=== PATIENT | male | born 1965 | race Caucasian/White ===

== ENCOUNTER 2019-11-18 17:20 | Emergency (ER) | payer OTHER, SELFPAY ==
[2019-11-18 17:22] VITALS: BP 119/74; PULSE 81; RESP 15; TEMP 36.9; O2SAT 97; BMI 32.5
--- NOTE | 2019-11-18 17:53 | RAD_ITS ---
STUDY: X-RAY - LEFT HAND REASON FOR EXAM: Male, 54 years old. LACERATION FROM SAW. LACERATION ON 5TH FINGER ON PALM SURFACE TECHNIQUE: 3 view(s) of the hand. COMPARISON: None. FINDINGS: Soft tissue swelling noted at the tip of the fifth finger with chip fractures at the base and lateral side of the distal phalanx of the fifth digit due to laceration. Mild to moderate soft tissue swelling is present throughout the hand and digits. There is also widening of the lateral aspect of the fifth DIP joint likely due to ligamentous injury or rupture. Normal radiocarpal articulation. Normal distal radioulnar joint. Normal visualized carpal bones. Normal carpal articulations Normal carpometacarpal articulation of the thumb. Normal second through fifth carpometacarpal joints. Normal metacarpi. RAD/Hand Min 3 Views IMPRESSION: 1. Chip fracture at the base of the fifth distal phalanx and soft tissue injury 2. Abnormal widening of the lateral aspect of the fifth the IP joint with slight subluxation indicating some degree of ligamentous trauma. Electronically Signed: Jose Petty MD at 18:17 EDT , Service support ,
--- NOTE | 2019-11-18 20:01 | DCINST.ED_ITS ---
ED Disposition - Plan for ED Patient: Instructions: ED Laceration Hand Prescriptions: Cephalexin [Keflex] 500 mg PO Q6 #40 capsule Hydrocodone Bitart/Apap 5-325 [Valmora 5MG-325MG] 1 tablet PO Q6H PRN PRN 3 Days #10 tablet PRN Reason: Pain Referrals: Zuly Mccormick MD [Primary Care Provider] - Mitul Mora MD [STAFF PHYSICIAN] -
[2019-11-18] MEDS: Cephalexin 250 MG Capsule 500 MG PO (20:07)
--- NOTE | 2019-11-18 20:07 | ED.DCSUM_ITS ---
- ER Visit Summary Date of Service: 11/18/19 Chief Complaint: Left small finger laceration History of Present Illness: The patient is a 54 M presenting with laceration to left small finger. Patient was using a table saw at home and cut his left small finger. His tetanus is up-to-date. This was not a work related injury. No other complaints. Physical Examination: Vitals are stable. Patient is afebrile. Alert no acute distress. HEENT exam is unremarkable. Neck is supple. Lungs are clear and equal bilaterally. Heart is regular rate and rhythm. Extremities 2 cm laceration lateral left small finger mid distal phalanx. Tendon function appears intact. Normal cap refill. Skin is warm and dry. No focal neurologic deficit. Remainder of exam is unremarkable. Emergency Department Course and Treatment: Left hand xray shows chip fracture at the base of the fifth distal phalanx and soft tissue injury. Abnormal widening of the lateral aspect of the fifth the IP joint with slight subluxation indicating some degree of ligamentous trauma. Recommend transfer to tertiary care center for hand surgery evaluation. Patient declines. He understands risk of poor healing and permanent disability. He would like wound repair at [facility] and he will follow up as an outpatient. Wound was copiously irrigated. Anesthetized with digital block and local lidocaine. 7, 4-0 simple sutures were placed. Patient tolerated this well. Advised wound care instructions. He is given prescription for Keflex and Atkinson. Discussed with Dr. Mccormick. Patient will follow-up with his primary care physician. He is given referral to Dr. Mora. Advised return to ED for worsening complaints. Disposition: Discharge home Impression: Left small finger laceration, laceration repair This note was generated with [employer] dictation software. It may contain incorrect words, spelling, and punctuation that were not noted in review of the chart prior to signing ED Disposition - Plan for ED Patient: Instructions: ED Laceration Hand Prescriptions: Cephalexin [Keflex] 500 mg PO Q6 #40 cap Prescription Printed Hydrocodone Bitart/Apap 5-325 [Atkinson 5MG-325MG] 1 tab PO Q6H PRN PRN 3 Days #10 tab PRN Reason: Pain Prescription Printed Referrals: Zuly Mccormick MD [Primary Care Provider] - Mitul Mora MD [STAFF PHYSICIAN] -
[2019-11-18 20:28] VITALS: BP 118/81; PULSE 79; RESP 15; O2SAT 98
== END 2019-11-18 20:29 | disposition home or self-care (01) ==
LOC: ED 17:39
PROVIDERS: Emergency Provider Emergency Medicine; PCP Internal Medicine
DX: S61.217A Laceration without foreign body of left little finger without damage to nail, initial encounter (principal); W29.3XXA Contact with powered garden and outdoor hand tools and machinery, initial encounter; Y93.89 Activity, other specified; Y92.008 Other place in unspecified non-institutional (private) residence as the place of occurrence of the external cause; Y99.8 Other external cause status
CPT/HCPCS: 12001; 73130; 99284

== ENCOUNTER 2020-05-27 13:15 | Emergency (ER) | payer SELFPAY ==
[2020-05-27] VITALS (8 sets, daily range): BP systolic 155–176; BP diastolic 104–128; PULSE 97–118; RESP 16–18; TEMP 36.6; O2SAT 96–97; BMI 30.1
--- NOTE | 2020-05-27 13:35 | EKG12_ITS ---
Test Reason : MEDICAL CLEARENCE Blood Pressure : / mmHG Vent. Rate : 110 BPM Atrial Rate : 110 BPM P-R Int : 146 ms QRS Dur : 082 ms QT Int : 332 ms P-R-T Axes : 029 006 006 degrees QTc Int : 449 ms Sinus tachycardia Possible Left atrial enlargement Nonspecific T wave abnormality Abnormal ECG Confirmed by AUGUSTUS BLACKWELL, SAMUEL ([id number]), photo editor ROBERTO PEREZ ([id number]) on 06/02/2020 6:30:11 AM Referred By: MR Confirmed By:SAMUEL COFFMAN MD
--- NOTE | 2020-05-27 13:39 | NURSING ---
NO OLD EKGS
[2020-05-27 13:51] LABS: Absolute Lymphocyte Count 0.89 X10^3/uL (0.83-4.51); Absolute Neutrophil Count 6.1 X10^3/uL (2.0-7.7); Basophil# 0.03 X10^3/uL; Basophil% 0.4 % (0-1); Eosinophil# 0.01 X10^3/uL; Eosinophils% 0.1 % (0-5); Hematocrit 48.4 % (40-54); Lymphocyte # 0.89 X10^3/ul (4.0); Lymphocyte % 11.9 % (19-41); Mean Corp Hgb Conc 35.1 g/dL (32-36); Mean Corpuscular Hgb 30.9 pg (27.0-32.0); Mean Platelet Vol. 10.2 fl (6.2-12.0); Monocyte# 0.39 X10^3/uL; Monocyte% 5.2 % (0-10); NRBC Flagged by Analyzer 0 % (0-5); Neutrophil # 6.12 X10^3/uL (2.7-7.7); Neutrophil % 82.1 % (47-70); Platelet Count 259 K/mm3 (150-450); RBC Distribution Width CV 11.8 % (11.6-14.6); RBC Distribution Width SD 38.1 fl (35.1-43.9); White Blood Count 7.5 K/mm3 (4.4-11.0)
[2020-05-27 14:11] LABS: Anion Gap 7 (5-15); BUN 20 mg/dL (7-18); BUN/Creat Ratio 12.8 RATIO (10-20); Calcium,Total 9.4 mg/dL (8.5-10.1); Chloride 108 mmol/L (98-107); Creatinine, Serum 1.56 mg/dL (0.70-1.30); EST Glomerular Filtration Rate 50 mL/min (>60); Est Glom Filt Rate - Afr Amer 60 mL/min (>60); Estimated Creatinine Clearance 56.54 ml/min; Glucose 132 mg/dL (74-106); Potassium 3.4 mmol/L (3.5-5.1); Sodium Level 140 mmol/L (136-145)
--- NOTE | 2020-05-27 14:25 | CM.ED ---
SOCIAL WORK Patient presents to [facility] ER [place] Slipped by police. Patient is self-pay. Crisis to evaluate for placement once patient is medically cleared. Plan: Pending Crisis evaluation Vijay Andres MSW, STEEL POURER
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
--- NOTE | 2020-05-27 16:13 | NURSING ---
1500 FAXED CHART TO CRISIS. DIDN'T GO THROUGH 1605 FAXED CHART TO CRISIS
--- NOTE | 2020-05-27 16:51 | NURSING ---
ANJANA RIDER, CALLED. PATIENT REFUSED TO TALK TO HER. SHE LEFT A MESSAGE FOR OUR RN IV THERAPY.
--- NOTE | 2020-05-27 17:17 | NURSING ---
PETR HICKMAN, NUMBER [phone]
--- NOTE | 2020-05-27 19:00 | CM.ED ---
SOCIAL WORK Updated by Jessica with Crisis, [facility] does not have a bed until at the earliest Sunday. Jessica working on one time contract with [facility] referral has been sent. Received call from Dr. Mccormick requesting update. Dr. Mccormick updated on the above. Vijay Andres, LOG INSPECTOR, HIGH SCHOOL LIBRARIAN
[2020-05-27 21:08] LABS: Amphetamine Urine VISTA NEGATIVE (<1000 ng/mL); Barbiturate Urine VISTA NEGATIVE (< 200 ng/mL); Benzodiazepine Urine VISTA NEGATIVE (< 200 ng/mL); Cocaine Urine VISTA NEGATIVE (< 300 ng/mL); Ecstacy Urine VISTA NEGATIVE (< 500 ng/mL); Methadone Urine VISTA NEGATIVE (< 300 ng/mL); PCP Urine VISTA NEGATIVE (< 25 ng/mL); THC Urine VISTA NEGATIVE (< 50 ng/mL); Vista UDS pH Range 6
--- NOTE | 2020-05-27 21:13 | CT_ITS ---
STUDY: CT BRAIN WITHOUT CONTRAST REASON FOR EXAM: Male, 54 years old. Psychosis. Paranoid feelings. Elevated blood pressure. RADIATION DOSAGE (If Supplied By Facility): CTDIvol = ( 60.81 ) mGy, DLP = ( 1067.08 ) mGycm TECHNIQUE: Transaxial CT imaging of the brain was performed without administration of intravenous contrast material. Individualized dose optimization techniques were used for this CT. COMPARISON: No relevant priors. FINDINGS: Normal soft tissue structures. Normal calvarium. Normal size ventricles and extra-axial spaces for the patient''s age. Normal white matter tracts of the cerebral hemispheres. Normal basal ganglia and thalami. Normal brainstem. Normal cerebellum. There is no intracranial hemorrhage. There are no findings of an acute ischemic infarction. Mucoperiosteal reaction in the bilateral maxillary sinuses. CT/Brain/Head without Contrast IMPRESSION: 1. Normal unenhanced CT scan of the brain. 2. Sinusitis. Electronically Signed: Td Kennedy DO at 21:41 EST Tel [phone], Service support ,
[2020-05-27] MEDS: cloNIDine HCl 0.2 MG Tablet PO (23:07)
[2020-05-28] VITALS (13 sets, daily range): BP systolic 126–172; BP diastolic 89–110; PULSE 76–85; RESP 16–18; TEMP 36.6; O2SAT 97–99
--- NOTE | 2020-05-28 00:30 | ED.RN ---
yeni hoyt has called back needs patients blood pressure more stable in order to accept ideal blood pressure 160/90. Dr. Blair made aware. will continue to monitor patient at this time.
[2020-05-28] MEDS: amLODIPine 10 MG Tablet PO (03:16)
[2020-05-28] MEDS: diazePAM 5 MG Tablet PO (04:21)
[2020-05-28] MEDS: Ziprasidone HCl 20 MG Capsule PO (06:45)
[2020-05-28] MEDS: cloNIDine HCl 0.2 MG Tablet PO (06:45)
--- NOTE | 2020-05-28 07:12 | ED.RN ---
accepted yeni hoyt when blood pressure decreases
--- NOTE | 2020-05-28 08:21 | ED.RN ---
called yeni hoyt with bp update. intake to talk with and phone us back
--- NOTE | 2020-05-28 10:24 | CM.ED ---
Social Work Medical team inquiring about status of referral. Telephone call to Jessica Anderson. Jessica reports plan to contact [facility] and get back to this social contact worker. Keyona Tavares MSW, KEVIN
--- NOTE | 2020-05-28 10:37 | NURSING ---
FAXED PINK SLIPS TO [facility] [phone]
--- NOTE | 2020-05-28 10:42 | CM.ED ---
Social Work Telephone call from Jessica Anderson. Patient accepted by [facility]. Nurse to call report to [phone]. When nursing calls report nursing to inquiring about accepting doctors name and time to set up transportation. Jessica to set up transportation due to patient being private pay. Medical team updated. Keyona SIMON, KEVIN
--- NOTE | 2020-05-28 11:01 | CM.ED ---
Social Work Per nursing staff, patient accepted Dr. Cleaning. Report has been called and transportation can be set up. Telephone call to Crisis, Jessica. Jessica updated on accepting doctor and that transportation can be set up. Jessica to set up transportation and call this social psychologist back with ETA. Keyona SIMON, CHLOE-S
--- NOTE | 2020-05-28 11:14 | ED.RN ---
report called to kevan at [facility]. nettie to call counseling center to arrange transport. pt remains cooperative at this time.
--- NOTE | 2020-05-28 11:40 | CM.ED ---
Social Work Telephone call from Jessica Anderson. ETA of 1:30 for transportation through [facility]. Medical team updated. Keyona Tavares MSW, BIRDS
--- NOTE | 2020-05-28 13:03 | NURSING ---
CALLED [facility], ETA IS 20 TO 25 MIN
== END 2020-05-28 14:07 | disposition short-term general hospital (02) ==
PROVIDERS: Emergency Provider Emergency Medicine; PCP Internal Medicine
DX: F30.2 Manic episode, severe with psychotic symptoms (principal)
CPT/HCPCS: 70450; 80048; 80307; 82077; 85025; 87426; 93005; 99285

== ENCOUNTER 2024-04-22 14:54 | Inpatient (IN) | payer MEDICAID, SELFPAY ==
[2024-04-22] VITALS (18 sets, daily range): BP systolic 113–156; BP diastolic 85–108; PULSE 80–149; RESP 16–33; TEMP 36.1–36.8; O2SAT 94–100; BMI 32.0; BMI 32.5
--- NOTE | 2024-04-22 15:20 | EKG12_ITS ---
Test Reason : A FIB Blood Pressure : */* mmHG Vent. Rate : 167 BPM Atrial Rate : * BPM P-R Int : * ms QRS Dur : 78 ms QT Int : 284 ms P-R-T Axes : * -7 85 degrees QTcB Int : 473 ms Critical Test Result: High HR Atrial fibrillation with rapid ventricular response Abnormal ECG When compared with ECG of 27-May-2020 13:58, Atrial fibrillation has replaced Sinus rhythm Vent. rate has increased by 57 bpm Nonspecific T wave abnormality no longer evident in Inferior leads Nonspecific T wave abnormality, improved in Anterolateral leads Confirmed by GWEN BLACKWELL, CLIFFORD ([id number]), sound editor GAGAN VARELA ([id number]) on 05/01/2024 5:55:39 A M Referred By: Confirmed By: CLIFFORD HIDALGO MD
--- NOTE | 2024-04-22 15:30 | EDS_ITS ---
HPI History of Present Illness Chief Complaint: Palpitations Informant: patient Onset/Context/Timing Onset: Weeks (1) Context: Gradual Onset Timing: Intermittent Quality: Congested Location: Lower chest and lower posterior thoracic area Worsened by: In the morning Relieved by: Nothing Narrative Narrative: Patient presents with chest congestion that has been getting worse over the last week. Patient states it is worse in the mornings. Patient states it feels like it is mainly in his lower chest and lower posterior thoracic area. Patient states he went to urgent care today to see if he can get a chest x-ray. Patient states he was noted to be in atrial fibrillation over there and was referred to the emergency department. Patient denies any chest pain or palpitations. Patient denies any fevers or chills. Patient denies any shortness of breath. Patient states he was in atrial fibrillation in the past and has been cardioverted twice. Patient states he had a cardiac catheterization back in May that was normal. [facility] Medical History (Updated 04/22/24 @ 21:[address] Arcadio Grant DO) Paroxysmal atrial fibrillation Home Medications ?Medication ?Instructions ?Recorded ?Last Taken ?Type NK 04/22/24 Unknown History Allergy/AdvReac Type Severity Reaction Status Date / Time Penicillins (PCN) Allergy Rash Verified 04/22/24 14:58 Surgical History no surgical history no surgical history Social History Smoking Status: Unknown if ever smoked [facility] ED Constitutional Constitutional ED: Denies chills or fever(s) Eyes Eyes: Denies blurry vision or change in vision ENT ENT ED: Denies rhinorrhea or sore throat Cardiovascular Cardiovascular: Denies chest pain or palpitations Respiratory/Chest Respiratory/Chest: Denies cough or dyspnea Gastrointestinal Gastrointestinal: Denies nausea or vomiting Genitourinary Genitourinary ED: Denies dysuria or hematuria Musculoskeletal Musculoskeletal: Denies back pain or neck pain Integumentary Denies abscess or rash Neurologic Neurologic: Denies headache(s) or weakness Allergic/Immunologic Allergic/Immunologic ED: Denies mouth swelling or urticaria EXAM Physical Exam Const Vital Signs: 04/22/24 14:58 04/22/24 15:26 04/22/24 15:58 Temperature 97 F L Temperature Source Temporal Pulse Rate 83 104 H Respiratory Rate 18 18 Respiratory Effort Short of Breath Blood Pressure 117/100 H 122/108 H Blood Pressure Mean 105 112 Blood Pressure Source Pulse Ox 100 96 Oxygen Delivery Method Room Air Room Air 04/22/24 16:17 04/22/24 17:00 04/22/24 17:18 Temperature Temperature Source Pulse Rate 108 H 106 H 130 H Respiratory Rate 30 H 27 H 30 H Respiratory Effort Blood Pressure 117/85 H 131/99 H 156/106 H Blood Pressure Mean 95 109 122 Blood Pressure Source Pulse Ox 96 97 97 Oxygen Delivery Method Room Air Room Air Room Air 04/22/24 17:41 04/22/24 18:10 04/22/24 18:13 Temperature Temperature Source Pulse Rate 125 H 132 H 115 H Respiratory Rate 16 18 20 H Respiratory Effort Blood Pressure 118/103 H 145/103 H 145/103 H Blood Pressure Mean 108 117 117 Blood Pressure Source Monitor Pulse Ox 98 98 97 Oxygen Delivery Method Room Air Room Air 04/22/24 19:00 04/22/24 19:13 04/22/24 19:25 Temperature Temperature Source Pulse Rate 112 H 119 H 98 Respiratory Rate 33 H 28 H 19 H Respiratory Effort Blood Pressure 131/107 H 131/107 H 134/99 H Blood Pressure Mean 115 115 110 Blood Pressure Source Pulse Ox 98 97 96 Oxygen Delivery Method Room Air Room Air Room Air 04/22/24 20:09 Temperature Temperature Source Pulse Rate 111 H Respiratory Rate 26 H Respiratory Effort Blood Pressure 126/92 H Blood Pressure Mean 103 Blood Pressure Source Pulse Ox 99 Oxygen Delivery Method Positive well nourished and well developed General Appearance ED: well developed and NAD HEENT Reports moist mucous membranes Neck supple and no JVD Resp normal respiratory effort and clear to auscultation bilaterally Cardio Rate: tachycardic Rhythm: abnormal rhythm irregularly irregular GI non-tender and non-distended Palpation: soft Extremity normal to inspection General Extremety ED: Negative for edema or tenderness General Extremity: Negative for edema Neuro oriented x3, CN's II-XII intact bilaterally and no sensory deficits noted Sensorium / Orientation: alert Motor Exam: strength 5/5 throughout Psych mental status grossly normal MDM MDM MDM Narrative Medical decision making narrative: Differential diagnosis includes atrial fibrillation, cardiac ischemia, electrolyte abnormality, pneumonia, bronchitis, and viral illness. EKG will be obtained to assess for cardiac dysrhythmia and cardiac ischemia. Chest x-ray will be obtained to assess for pneumonia and pneumothorax. CBC will be obtained to assess for leukocytosis and anemia. Basic metabolic profile will be obtained to assess for electrolyte abnormality and renal function. High-sensitivity troponin will be obtained to assess for cardiac ischemia. COVID-19, influenza, and RSV PCR will be obtained to assess for viral illness. Lab Data Attestation: I reviewed the patient's lab results. Lab results narrative: CBC was reviewed and was within normal limits. Basic metabolic profile was reviewed. Creatinine was slightly elevated at 1.37. This is consistent with previous results. PT was INR and PTT were reviewed. Pro time was 15.2 and INR is 1.2. PTT was normal at 28.4. Initial high-sensitivity troponin was reviewed and was normal at 15. 2-hour repeat high-sensitivity troponin was reviewed and was normal at 13. COVID-19 PCR was reviewed and was negative. Influenza PCR was reviewed and was negative for influenza A and influenza B. RSV PCR was reviewed and was negative. Labs: Laboratory Results - last 24 hr 04/22/24 04/22/24 15:25 17:22 WBC 9.1 RBC 5.34 Hgb 16.5 Hct 47.1 MCV 88.2 MCH 30.9 MCHC 35.0 RDW Std Deviation 37.6 RDW Coeff of Tariq 11.8 Plt Count 276 MPV 11.1 Immature Gran % (Auto) 0.400 Neut % (Auto) 64.8 Lymph % (Auto) 24.6 [place] % (Auto) 8.9 Eos % (Auto) 0.8 Baso % (Auto) 0.5 Absolute Neuts (auto) 5.9 Absolute Lymphs (auto) 2.25 Nucleated RBC % 0 PT 15.2 H INR 1.2 APTT 28.4 Sodium 137 Potassium 4.2 Chloride 109 H Carbon Dioxide 21.0 Anion Gap 7 BUN 18 Creatinine 1.37 H Estim Creat Clear Calc 73.10 Est GFR (MDRD) Af Amer 69 Est GFR (MDRD) Non-Af 57 L BUN/Creatinine Ratio 13.1 Glucose 105 Calcium 9.0 Troponin I High Sens 15 13 B-Natriuretic Peptide 628.6 H Radiography Chest X-Ray - ED: 2 View, Read by ED Physician, Read by Radiologist and No Acute Disease Diagnostic Testing: Clinical Impression(s) from Imaging Studies Chest X-Ray 04/22/24 16:00 IMPRESSION: Normal x-ray examination of the chest. Electronically Signed: Chucky Fletcher MD at 16:12 EST , PA and lateral chest x-ray was obtained. There are 2 views. On my independent interpretation, lung price are clear. There is normal cardiac silhouette. Bony thorax is normal. There is no acute process noted. Radiologist also interpreted the x-ray and agrees. EKG Initial EKG: Attestation: I personally reviewed and interpreted this EKG as follows: Interpretation: Atrial Fibrillation (167) and Non-Specific ST Changes Comments: EKG was obtained. On my independent interpretation, it shows atrial fibrillation with a rate of 167. QRS interval was normal at 78 ms. QTc interval was normal at 473 ms. [place] was -7. There are nonspecific ST-T wave changes noted. Prior: Changed (Compared to EKG dated 05/27/2020, the atrial fibrillation is new.) Treatment and Re-Evaluation :: Patient was given a dose of Cardizem here. Patient's heart rate improved but then increased again. Patient was started on Cardizem IV drip. Case was discussed with Dr. Munson. He recommended obtaining a proBNP. This was ordered. He also recommended admitting the patient. Case was discussed with the hospitalist. She will admit the patient to PCU. Patient and family understand and are agreeable with the plan. All questions were answered. Discharge Plan Dx/Rx/DC Orders Clinical Impression: Atrial fibrillation with rapid ventricular response, Elevated blood pressure reading Disposition Disposition: Acute Care Hospital [facility]
[2024-04-22] MEDS: dilTIAZem 25 MG/5 ML Vial IV BOLUS (15:48)
[2024-04-22] MEDS: 0.9% Normal Saline (1000mL) 1,000 ML 1000 ML IV (15:48)
[2024-04-22 15:57] LABS: Absolute Lymphocyte Count 2.25 X10^3/uL (0.83-4.51); Absolute Neutrophil Count 5.9 X10^3/uL (2.0-7.7); Basophil# 0.05 X10^3/uL; Basophil% 0.5 % (0-1); Eosinophil# 0.07 X10^3/uL; Eosinophils% 0.8 % (0-5); Hematocrit 47.1 % (40-54); Hemoglobin 16.5 g/dL (13.0-16.5); Lymphocyte # 2.25 X10^3/ul (0.83-4.51); Lymphocyte % 24.6 % (19-41); Mean Corpuscular Hgb 30.9 pg (27.0-32.0); Mean Corpuscular Volume 88.2 fL (80-94); Mean Platelet Vol. 11.1 fl (6.2-12.0); Monocyte# 0.81 X10^3/uL; Monocyte% 8.9 % (0-10); NRBC Flagged by Analyzer 0 % (0-5); Neutrophil # 5.91 X10^3/uL (2.7-7.7); Neutrophil % 64.8 % (47-70); Platelet Count 276 K/mm3 (150-450); RBC Distribution Width CV 11.8 % (11.6-14.6); RBC Distribution Width SD 37.6 fl (35.1-43.9); Red Blood Count 5.34 M/mm3 (4.6-6.2); White Blood Count 9.1 K/mm3 (4.4-11.0)
--- NOTE | 2024-04-22 16:00 | RAD_ITS ---
STUDY: X-RAY CHEST REASON FOR EXAM: Male, 58 years old. Cough TECHNIQUE: PA and lateral COMPARISON: None. FINDINGS: The lungs are clear and expanded. There is no demonstrated pleural abnormality. Normal size heart. Normal mediastinum and dominic. Normal visualized pulmonary arteries. Normal visualized aortic arch and descending thoracic aorta. Normal visualized thoracic spine. Normal visualized ribs, clavicles, and shoulders. There is no demonstrated abnormality of the visualized soft tissue structures of the upper abdomen. RAD/Chest PA and Lateral IMPRESSION: Normal x-ray examination of the chest. Electronically Signed: Chucky Fletcher MD at 16:12 [facility] ,
[2024-04-22 16:16] LABS: Anion Gap 7 (5-15); BUN 18 mg/dL (7-18); BUN/Creat Ratio 13.1 RATIO (10-20); Chloride 109 mmol/L (98-107); Creatinine, Serum 1.37 mg/dL (0.70-1.30); EST Glomerular Filtration Rate 57 mL/min (>60); Est Glom Filt Rate - Afr Amer 69 mL/min (>60); Glucose 105 mg/dL (74-106); Potassium 4.2 mmol/L (3.5-5.1); Sodium Level 137 mmol/L (136-145); Troponin-I HS (w/2H Reflex) 15 pg/mL (3.0-78.0)
--- NOTE | 2024-04-22 16:33 | CM.ED ---
Social Work Reason for visit: No PCP Patient verified that he does not currently have a PCP, resource list provided. Patient accepting of same. No further needs identified. Mari Lux, ANAESTHESIOLOGIST, TAPER MACHINE
[2024-04-22 16:42] LABS: International Normalized Ratio 1.2; Prothrombin Time (Protime)PT. 15.2 SECONDS (11.7-14.9)
[2024-04-22 16:43] LABS: Partial Thromboplast Time 28.4 Seconds (24.1-36.2)
[2024-04-22] MEDS: Diltiazem 125 MG in Dextrose 5%-Water (100mL Bag) 100 ML IV (17:41)
[2024-04-22 17:46] LABS: Reflex Troponin-HS? (from REC) Y
[2024-04-22 18:30] LABS: Troponin-I HS 13 pg/mL (3.0-78.0)
[2024-04-22 20:43] LABS: BNP,B-Type NATRIURETIC PEPTIDE 628.6 pg/mL (0-100)
--- NOTE | 2024-04-22 20:48 | PCM.HP.STD ---
HPI - General General Date of Admission: 04/22/24 Date of Service: 04/22/24 Chief Complaint: Palpitations HPI Narrative The patient is a 58 y/o M w/ PMHx: Obesity, CKD stage III unclear subtype based on prior GFR trending who presents to the [facility] ED on 04/22/2024 with onset of palpitations intermittent over the last week with sensation of chest congestion primarily in the lower chest and posterior thoracic region worse in the morning with urgent care evaluation with chest x-ray with no marked findings there but they reported he was in an irregular rhythm and referred to the ED for concern for atrial fibrillation with no associated chest pain or fevers or chills nor shortness of breath with previous history of paroxysmal A-fib noted to be cardioverted twice in the past with a cardiac catheterization back in May on year of presentation which was reportedly normal but given ongoing symptoms was referred to the ED for further evaluation. He denied specifically any palpitations or chest pain associated. He does report that he previously been on Eliquis but his prescription ran out and it is unclear what other medication he may have been on. Workup in the ED included T97, heart rate 83, BP 117/100, respiratory rate 18, 100% on room air with various fluctuations in his heart rate ranging up to 132, most recent repeat vital signs heart rate 111, BP 126/92, respiratory rate 26, 99% on room air, CBC with WBC 9.1, human 16.5, platelet 276 without marked shift, coags with PT 15.2 otherwise unremarkable, BMP with chloride 109, BUN/creatinine 18/1.37, GFR 57, troponin initially 15 with repeat delta 13, BNP 628.6, chest x-ray with no acute cardiopulmonary findings, rapid SARS COVID/influenza/RSV PCR negative, EKG with atrial fibrillation with nonspecific changes with no acute evidence of ischemia with RVR. In the ED patient administered diltiazem 25 mg IV bolus x 1 as well as 1 L normal saline and eventually placed on a Cardizem drip. ED discussed case with Dr. Munson Cardiology who requested BNP. [facility] Medical History (Updated 04/23/24 @ 01:[address] Renee Wall MD) Obesity CKD (chronic kidney disease), stage III Paroxysmal atrial fibrillation Home Medications ?Medication ?Instructions ?Recorded ?Last Taken ?Type NK 04/22/24 Unknown History Allergy/AdvReac Type Severity Reaction Status Date / Time Penicillins (PCN) Allergy Rash Verified 04/22/24 14:58 Family History (Updated 04/23/24 @ 01:[address] Renee Wall MD) Father CAD (coronary artery disease) Hypertension Myocardial infarction Mother No problems noted. Surgical History (Updated 04/23/24 @ 01:[address] Renee Wall MD) No significant past surgical history Surgical History no surgical history Social History (Updated 04/23/24 @ 01:[address] Renee Wall MD) household members: none Smoking Status: Never smoker alcohol intake: never substance use type: does not use ROS ROS Narrative Admission Review of Systems: CONSTITUTIONAL: No weight loss, fever, chills, + weakness or fatigue. HEENT: Eyes: No visual loss, blurred vision, double vision or yellow sclerae. Ears, Nose, Throat: No hearing loss, sneezing, congestion, runny nose or sore throat. SKIN: No rash or itching, lesions, wounds. CARDIOVASCULAR: + Chest congestion/overload sensation. No chest pain, chest pressure or chest discomfort, palpitations, edema, syncopal events. RESPIRATORY: + Dyspnea, congestion sensation. No marked cough or sputum, wheezing, hemoptysis. GASTROINTESTINAL: No anorexia, nausea, vomiting or diarrhea, abdominal pain, melena, BRBPR. GENITOURINARY: No dysuria, frequency, urgency or retention. NEUROLOGICAL: No headache, dizziness, syncope, paralysis, ataxia, numbness or tingling in the extremities, focal weakness, change in bowel or bladder control, seizure. MUSCULOSKELETAL: No muscle, back pain, joint pain or stiffness. HEMATOLOGIC: No anemia, bleeding or bruising. LYMPHATICS: No enlarged nodes. No history of splenectomy. PSYCHIATRIC: No history of depression or anxiety. + Previous ER visit noted with diagnosis manic psychosis. ENDOCRINOLOGIC: No reports of sweating, cold or heat intolerance. No polyuria or polydipsia. ALLERGIES: No history of asthma, hives, eczema or rhinitis. Vital Signs Vital Signs Vital Signs: 04/22/24 14:58 04/22/24 15:26 04/22/24 15:58 Temperature 97 F L Temperature Source Temporal Pulse Rate 83 104 H Respiratory Rate 18 18 Respiratory Effort Short of Breath Blood Pressure 117/100 H 122/108 H Blood Pressure Mean 105 112 Blood Pressure Source Pulse Ox 100 96 Oxygen Delivery Method Room Air Room Air 04/22/24 16:17 04/22/24 17:00 04/22/24 17:18 Temperature Temperature Source Pulse Rate 108 H 106 H 130 H Respiratory Rate 30 H 27 H 30 H Respiratory Effort Blood Pressure 117/85 H 131/99 H 156/106 H Blood Pressure Mean 95 109 122 Blood Pressure Source Pulse Ox 96 97 97 Oxygen Delivery Method Room Air Room Air Room Air 04/22/24 17:41 04/22/24 18:10 04/22/24 18:13 Temperature Temperature Source Pulse Rate 125 H 132 H 115 H Respiratory Rate 16 18 20 H Respiratory Effort Blood Pressure 118/103 H 145/103 H 145/103 H Blood Pressure Mean 108 117 117 Blood Pressure Source Monitor Pulse Ox 98 98 97 Oxygen Delivery Method Room Air Room Air 04/22/24 19:00 04/22/24 19:13 04/22/24 19:25 Temperature Temperature Source Pulse Rate 112 H 119 H 98 Respiratory Rate 33 H 28 H 19 H Respiratory Effort Blood Pressure 131/107 H 131/107 H 134/99 H Blood Pressure Mean 115 115 110 Blood Pressure Source Pulse Ox 98 97 96 Oxygen Delivery Method Room Air Room Air Room Air 04/22/24 20:09 Temperature Temperature Source Pulse Rate 111 H Respiratory Rate 26 H Respiratory Effort Blood Pressure 126/92 H Blood Pressure Mean 103 Blood Pressure Source Pulse Ox 99 Oxygen Delivery Method Weight Weight: 229 lb 12.8 oz Body Mass Index (BMI) 32.0 Physical Exam Narrative Physical Examination: General: Awake, alert, oriented x 3 and cooperative, seated upright in the ED bed in no apparent distress. Skin: Normal color, normal turgor, no icterus, no cyanosis. HEENT: AT/NC, EOMI, PERRLA, MMM, no carotid bruits, no marked JVD noted. Lungs: Mildly diminished, greater bases, mildly increased respiratory rate but no distress, no rales, ronchi or wheezing. Heart: Irregular irregular; no gallop, rub audible. Abdomen: Soft, obese, NTTP, ND, distant normal BS, no appreciated HSM. Extremities: No cyanosis, no clubbing, mild ankle not markedly pitting edema. Neurological: Patient awake, alert, oriented as noted, cognitive function intact; pupils equally reactive to light and accommodation, cranial nerves grossly normal, moving all 4 extremities, no focal deficits, strength preserved. Psychiatric: Affect appears fatigued otherwise normal, no acute evidence of depressive or anxiety feelings. Results Lab / Micro Data 04/22/24 15:25 04/22/24 15:25 Labs: Laboratory Results - last 24 hr 04/22/24 15:25: WBC 9.1, RBC 5.34, Hgb 16.5, Hct 47.1, MCV 88.2, MCH 30.9, MCHC 35.0, RDW Std Deviation 37.6, RDW Coeff of Tariq 11.8, Plt Count 276, MPV 11.1, Immature Gran % (Auto) 0.400, Neut % (Auto) 64.8, Lymph % (Auto) 24.6, [place] % (Auto) 8.9, Eos % (Auto) 0.8, Baso % (Auto) 0.5, Absolute Neuts (auto) 5.9, Absolute Lymphs (auto) 2.25, Nucleated RBC % 0, PT 15.2 H, INR 1.2, APTT 28.4, Sodium 137, Potassium 4.2, Chloride 109 H, Carbon Dioxide 21.0, Anion Gap 7, BUN 18, Creatinine 1.37 H, Estim Creat Clear Calc 73.10, Est GFR (MDRD) Af Amer 69, Est GFR (MDRD) Non-Af 57 L, BUN/Creatinine Ratio 13.1, Glucose 105, Calcium 9.0, Troponin I High Sens 15, B-Natriuretic Peptide 628.6 H 04/22/24 17:22: Troponin I High Sens 13 Micro: Microbiology 04/22/24 13:53 Mucosa - Nose SARS-CoV-2, Influenza & RSV (PCR) - Final Imaging Radiology Impression Chest X-Ray 04/22/24 16:00 IMPRESSION: Normal x-ray examination of the chest. Electronically Signed: Chucky Fletcher MD at 16:12 EST , Assessment & Plan Assessment/Plan (1) Atrial fibrillation with rapid ventricular response: PLAN: Plan The patient is a 58 y/o M w/ PMHx: Obesity, CKD stage III unclear subtype based on prior GFR trending who presents to the [facility] ED on 04/22/2024 with onset of palpitations intermittent over the last week with sensation of chest congestion primarily in the lower chest and posterior thoracic region worse in the morning with urgent care evaluation with chest x-ray with no marked findings there but they reported he was in an irregular rhythm and referred to the ED for concern for atrial fibrillation with no associated chest pain or fevers or chills nor shortness of breath with previous history of paroxysmal A-fib noted to be cardioverted twice in the past with a cardiac catheterization back in May on year of presentation which was reportedly normal but given ongoing symptoms was referred to the ED for further evaluation. #1. Paroxsymal atrial fibrillation w/ RVR with concern for mild possible overload component: EKG in ED w/ atrial fibrillation w/ RVR. Patient administered Cardizem bolus and eventually placed on drip in ED. Will admit to PCU, maintain on telemetry, obtain cardiac enzyme serial set, obtain magnesium level, obtain ECHO, obtain TSH level. Will reinitiate Eliquis therapy per patient preference. Will continue Cardizem drip. Will post dose with Lasix 20 mg IV x 1. Urine drug screen has been requested. Cardiology consulted and aware patient is discussed with the ED physician upon admission. #2. Elevated BP without hypertensive diagnosis: BP upon initial presentation significantly elevated above goal, possibly secondary to acute presentation, improved on Cardizem drip, continue to monitor and if necessary once transitioned may require hypertensive treatment. #3. Chronic Kidney Disease Stage III, unclear subtype per GFR trending: Admission BUN/Cr 18/1.37, GFR 57, baseline renal function 1.56 previously but this was 05/27/2020 thus remote but GFR previously was also in the stage III range, repeat BMP in AM. #4. Obesity: Weight loss and lifestyle changes encouraged. #5. DVT prophylaxis: Will reinitiate Eliquis therapy. #6. CODE status: Patient KUNAL is his son Louie and living will is currently in place. Discussed CODE status at length including difference between FULL code, DNR-CCA and DNR-CC status. Following discussions about the differences in these status, requested Full Code status. Charges/Coding Visit Charges Inpatient E&M: 89995 Init Hosp L3
[2024-04-22 22:45] LABS: Magnesium 1.9 mg/dL (1.6-2.6)
--- NOTE | 2024-04-22 23:32 | ECHOD_ITS ---
Reason For Study: Afib/Flutter Procedure This was a 2D Doppler, Color Flow transthoracic echocardiogram. Exam performed portable in ICU/CCU. Left Ventricle Normal LV size. The left ventricular ejection fraction is 35 %. No regional wall motion abnormalities noted. There is moderate global hypokinesis of the left ventricle. Right Ventricle Normal RV size. Normal systolic function. Atria The left atrium is mildly enlarged. Normal right atrium. Mitral Valve Normal mitral valve. Mild-Moderate (1-2+) eccentric mitral valve insufficiency. Tricuspid Valve Normal tricuspid valve. Mild tricuspid valve insufficiency. Pulmonary artery systolic pressure is 44 mmHg. Aortic Valve Trisinus/trileaflet aortic valve. Pulmonic Valve Normal pulmonic valve. Great Vessels Normal aortic root. The pulmonary artery is normal size. Inferior vena cava collapse with respiration. Pericardium/Pleural No pericardial effusion. MMode/2D Measurements & Calculations LVIDd: 5.4 cm IVSd: 0.97 cm Ao root diam: 3.6 cm LVIDs: 4.3 cm LVPWd: 1.0 cm RVDd: 3.5 cm FS: 21.3 % LAV(MOD-bp): 75.7 ml LVAd ap4: 35.5 cm2 SV(MOD-sp4): 63.2 ml LAV(MOD-bp) Indexed: 33.9 ml/m2 LVLd ap4: 8.1 cm SI(MOD-sp4): 28.3 ml/m2 LAV(MOD-sp2): 74.1 ml EDV(MOD-sp4): 125.3 ml LAV(MOD-sp4): 70.8 ml EDV(sp4-el): 132.8 ml LVAs ap4: 22.8 cm2 LVLs ap4: 7.0 cm ESV(MOD-sp4): 62.1 ml ESV(sp4-el): 63.4 ml EF(MOD-sp4): 50.5 % EF(sp4-el): 52.2 % SV(sp4-el): 69.4 ml LA A4 area: 23.5 cm2 LA dimension(2D): 4.7 cm RA A4 area: 19.3 cm2 Doppler Measurements & Calculations MV E max gary: 125.2 cm/sec MV V2 max: 124.5 cm/sec Ao V2 max: 129.0 cm/sec MV max P.2 mmHg Ao max P.8 mmHg MV V2 mean: 62.7 cm/sec Ao V2 mean: 90.1 cm/sec MV mean P.1 mmHg Ao mean P.8 mmHg MV V2 VTI: 27.0 cm Ao V2 VTI: 21.4 cm AV (velocity ratio): 0.72 LV V1 max: 92.3 cm/sec MR max gary: 485.1 cm/sec PA V2 max: 92.2 cm/sec LV V1 max P.4 mmHg MR max P.1 mmHg LV V1 mean P.9 mmHg MR mean gary: 376.6 cm/sec LV V1 mean: 63.8 cm/sec MR mean P.5 mmHg LV V1 VTI: 15.5 cm MR VTI: 150.8 cm TR max gary: 319.7 cm/sec TR max P.9 mmHg ECHO/Echo Complete Interpretation Summary Normal LV size. The left ventricular ejection fraction is 35 %. Mild-Moderate (1-2+) eccentric mitral valve insufficiency. Pulmonary artery systolic pressure is 44 mmHg. There is moderate global hypokinesis of the left ventricle. Ordering Physician: Renee Wall Performed By: Bernardino Garcia RCS
[2024-04-23] VITALS (36 sets, daily range): BP systolic 98–159; BP diastolic 63–137; PULSE 59–104; RESP 14–32; TEMP 26.1–36.7; O2SAT 93–99; BMI 32.3
[2024-04-23] MEDS: Furosemide 20 MG/2 ML VIAL IV (00:19)
[2024-04-23] MEDS: Diltiazem 125 MG in Dextrose 5%-Water (100mL Bag) 100 ML 10 MG CONT INF (03:00)
[2024-04-23] MEDS: APIXABAN 5 MG TABLET PO ×3 (03:10→22:26)
[2024-04-23 03:30] LABS: Absolute Lymphocyte Count 2.31 X10^3/uL (0.83-4.51); Absolute Neutrophil Count 4.2 X10^3/uL (2.0-7.7); Basophil# 0.04 X10^3/uL; Basophil% 0.5 % (0-1); Eosinophil# 0.14 X10^3/uL; Eosinophils% 1.9 % (0-5); Hematocrit 42.9 % (40-54); Lymphocyte # 2.31 X10^3/ul (0.83-4.51); Lymphocyte % 31.7 % (19-41); Mean Corpuscular Hgb 30.9 pg (27.0-32.0); Mean Corpuscular Volume 88.3 fL (80-94); Mean Platelet Vol. 10.5 fl (6.2-12.0); Monocyte# 0.56 X10^3/uL; Monocyte% 7.7 % (0-10); NRBC Flagged by Analyzer 0 % (0-5); Neutrophil # 4.21 X10^3/uL (2.7-7.7); Neutrophil % 57.9 % (47-70); Platelet Count 224 K/mm3 (150-450); RBC Distribution Width CV 11.9 % (11.6-14.6); RBC Distribution Width SD 38.2 fl (35.1-43.9); Red Blood Count 4.86 M/mm3 (4.6-6.2); White Blood Count 7.3 K/mm3 (4.4-11.0)
[2024-04-23 03:55] LABS: ALB/GLOB Ratio 0.9 RATIO (0.9-2.4); AST(SGOT) 12 U/L (15-37); Alanine Aminotransfer ALT/SGPT 18 U/L (16-61); Albumin, Serum 3.2 g/dL (3.2-5.0); Alkaline Phosphatase 58 U/L (45-117); Anion Gap 5 (5-15); BUN 19 mg/dL (7-18); BUN/Creat Ratio 13.6 RATIO (10-20); Calcium,Total 8.1 mg/dL (8.5-10.1); Chloride 107 mmol/L (98-107); Cholesterol 155 mg/dL (200); EST Glomerular Filtration Rate 55 mL/min (>60); Est Glom Filt Rate - Afr Amer 67 mL/min (>60); Estimated Creatinine Clearance 72.03 ml/min; Globulin 3.4 g/dL (2.2-4.2); Glucose 111 mg/dL (74-106); High Density Lipoprotein 40 mg/dL; Potassium 3.6 mmol/L (3.5-5.1); Protein, Total 6.6 g/dL (6.4-8.2); Sodium Level 140 mmol/L (136-145); Triglycerides 105 mg/dL; Very Low Density Lipoprotein 21 mg/dL (5-40)
[2024-04-23 04:00] LABS: Troponin-I HS 14 pg/mL (3.0-78.0)
[2024-04-23 06:31] LABS: Troponin-I HS 12 pg/mL (3.0-78.0)
[2024-04-23 08:34] LABS: Amphetamine Urine VISTA NEGATIVE (<1000 ng/mL); Barbiturate Urine VISTA NEGATIVE (< 200 ng/mL); Benzodiazepine Urine VISTA NEGATIVE (< 200 ng/mL); Cocaine Urine VISTA NEGATIVE (< 300 ng/mL); Ecstacy Urine VISTA NEGATIVE (< 500 ng/mL); Methadone Urine VISTA NEGATIVE (< 300 ng/mL); PCP Urine VISTA NEGATIVE (< 25 ng/mL); THC Urine VISTA NEGATIVE (< 50 ng/mL); Vista UDS pH Range 5
[2024-04-23] MEDS: dilTIAZem 25 MG/5 ML Vial 20 MG IV BOLUS (09:25)
--- NOTE | 2024-04-23 09:27 | PCM.CONS.C ---
Assessment & Plan Assessment/Plan (1) Atrial fibrillation with rapid ventricular response: PLAN: Paroxysmal atrial fibrillation with a rapid ventricular response rate. The etiology of the above is not entirely clear at this particular time. My recommendation at this time will be to rate control him with intravenous diltiazem for which she has been bolused and continuous IV infusion and then to obtain an echocardiogram to assess his ventricular function. Depending on the findings further recommendations will be made. He will also continue to be anticoagulated with Eliquis at this time. Thank you for allowing me to participate in the care of your patient. Please don't hesitate to call if any issues arise. HPI Consult Data Date of Consult: 04/23/24 HPI Narrative HPI Narrative: NAZARIO ASHTON, is a 58 M who presents to the emergency room with palpitations which started over the last week with symptoms of chest congestion in the lower chest and went to see the urgent care and x-ray was done and over there he was reported to be in atrial fibrillation on a regular rhythm and so was sent to the emergency room. His EKG that did confirm atrial fibrillation. He does have a previous history of paroxysmal atrial fibrillation and has been cardioverted twice in the past. He did have a cardiac catheterization in May which was apparently normal. He has a history of obesity and chronic kidney disease. In the emergency room he was evaluated his troponin was negative and a [employer] was obtained which was noted to be elevated. He was admitted to the intensive care unit on a diltiazem drip. At this particular time he appears to be comfortable making a conference call. His heart rate however remains elevated. [facility] Medical History Obesity CKD (chronic kidney disease), stage III Paroxysmal atrial fibrillation Home Medications ?Medication ?Instructions ?Recorded ?Last Taken ?Type NK 04/22/24 Unknown History Allergy/AdvReac Type Severity Reaction Status Date / Time Penicillins (PCN) Allergy Rash Verified 04/22/24 14:58 Family History Father CAD (coronary artery disease) Hypertension Myocardial infarction Mother No problems noted. Surgical History No significant past surgical history Surgical History no surgical history Social History household members: none Smoking Status: Never smoker alcohol intake: never substance use type: does not use ROS Constitutional Constitutional: Denies fever(s) or weight loss Eyes Eyes: Reports systems reviewed and no addt'l complaints, except as documented ENT HEENT: Reports systems reviewed and no addt'l complaints, except as documented Cardiovascular Cardiovascular: Reports dyspnea at rest, dyspnea on exertion and palpitations; Denies chest pain at rest, chest pain with activity, edema or paroxysmal nocturnal dyspnea Respiratory/Chest Respiratory/Chest: Denies dyspnea on exertion, productive cough, shortness of breath at rest or shortness of breath with exertion Gastrointestinal Gastrointestinal: Denies change in bowel habits, nausea, vomiting or weight changes Genitourinary Genitourinary: Denies difficulty urinating Musculoskeletal Musculoskeletal: Denies joint stiffness or muscle weakness Integumentary Integumentary: Denies lesions Neurologic Neurologic: Denies dizziness or syncope Psychiatric Psychiatric: Denies anxiety Endocrine Endocrinology: Denies excessive sweating or fatigue Hematologic/Lymphatic Hematologic/Lymphatic: Denies anemia Allergic/Immunologic Allergic/Immunologic: Denies seasonal rhinorrhea Physical Exam Const alert, oriented x3 and no apparent distress General Appearance: cooperative HEENT hearing grossly normal bilaterally Head and Scalp: atraumatic Eyes EOMs intact bilaterally Neck General: normal visual inspection Chest inspection of chest normal and palpation of chest normal Resp normal respiratory effort Auscultation: clear to auscultation bilaterally Cardio S1 normal heart sound and S2 normal heart sound Jugular Venous Distention: JVD Rhythm: abnormal rhythm irregularly irregular GI normal to inspection, nondistended, normoactive bowel sounds Extremity normal capillary refill and no pedal edema Peripheral Pulses: Yes pulses 2+ throughout and femoral pulses present Skin no rashes or lesions noted Neuro oriented x3 and CN's II-XII intact bilaterally Psych Appearance: grossly normal and appropriate Risk Stratification Risk Stratification Applicable: No Objective Data Vital Signs: Vital Signs Temp Pulse Resp BP Pulse Ox O2 Del Method 97 F L 89 26 H 159/108 H 95 Room Air 04/23/24 04:00 04/23/24 08:00 04/23/24 08:00 04/23/24 08:00 04/23/24 08:00 04/23/24 08:37 Oxygen Delivery Method Room Air Weight: 230 lb 9.656 oz Body Mass Index (BMI) 32.3 Intake & Output: Intake and Output for Last 24 Hours 04/21/24 04/22/24 04/23/24 23:59 23:59 23:59 Intake Total 1026.92 / 1384.67 1048.08 / 1048.08 Output Total 1600 / 1600 Balance 1026.92 / 1384.67 -551.92 / -551.92 Lab / Micro Data 04/23/24 03:20 04/23/24 03:20 Labs: Laboratory Results - last 24 hr 04/22/24 15:25: WBC 9.1, RBC 5.34, Hgb 16.5, Hct 47.1, MCV 88.2, MCH 30.9, MCHC 35.0, RDW Std Deviation 37.6, RDW Coeff of Tariq 11.8, Plt Count 276, MPV 11.1, Immature Gran % (Auto) 0.400, Neut % (Auto) 64.8, Lymph % (Auto) 24.6, [place] % (Auto) 8.9, Eos % (Auto) 0.8, Baso % (Auto) 0.5, Absolute Neuts (auto) 5.9, Absolute Lymphs (auto) 2.25, Nucleated RBC % 0, PT 15.2 H, INR 1.2, APTT 28.4, Sodium 137, Potassium 4.2, Chloride 109 H, Carbon Dioxide 21.0, Anion Gap 7, BUN 18, Creatinine 1.37 H, Estim Creat Clear Calc 73.10, Est GFR (MDRD) Af Amer 69, Est GFR (MDRD) Non-Af 57 L, BUN/Creatinine Ratio 13.1, Glucose 105, Calcium 9.0, Troponin I High Sens 15, B-Natriuretic Peptide 628.6 H 04/22/24 17:22: Magnesium 1.9, Troponin I High Sens 13 04/23/24 03:20: WBC 7.3, RBC 4.86, Hgb 15.0, Hct 42.9, MCV 88.3, MCH 30.9, MCHC 35.0, RDW Std Deviation 38.2, RDW Coeff of Tariq 11.9, Plt Count 224, MPV 10.5, Immature Gran % (Auto) 0.300, Neut % (Auto) 57.9, Lymph % (Auto) 31.7, [place] % (Auto) 7.7, Eos % (Auto) 1.9, Baso % (Auto) 0.5, Absolute Neuts (auto) 4.2, Absolute Lymphs (auto) 2.31, Nucleated RBC % 0, Sodium 140, Potassium 3.6, Chloride 107, Carbon Dioxide 28.0, Anion Gap 5, BUN 19 H, Creatinine 1.40 H, Estim Creat Clear Calc 72.03, Est GFR (MDRD) Af Amer 67, Est GFR (MDRD) Non-Af 55 L, BUN/Creatinine Ratio 13.6, Glucose 111 H, Calcium 8.1 L, Total Bilirubin 1.10 H, AST 12 L, ALT 18, Alkaline Phosphatase 58, Troponin I High Sens 14, Total Protein 6.6, Albumin 3.2, Globulin 3.4, Albumin/Globulin Ratio 0.9, Triglycerides 105, Cholesterol 155, LDL Cholesterol 94, VLDL Cholesterol 21, HDL Cholesterol 40, TSH 3.780 H 04/23/24 05:44: Urine Opiates Screen NEGATIVE, Urine Methadone Screen NEGATIVE, Ur Barbiturates Screen NEGATIVE, Ur Phencyclidine Scrn NEGATIVE, Ur Amphetamines Screen NEGATIVE, MDMA (Ecstasy) Screen NEGATIVE, U Benzodiazepines Scrn NEGATIVE, Urine Cocaine Screen NEGATIVE, U Cannabinoids Screen NEGATIVE, Ur Drug Screen Comment 04/23/24 05:50: Troponin I High Sens 12 Micro: Microbiology 04/22/24 13:53 Mucosa - Nose SARS-CoV-2, Influenza & RSV (PCR) - Final Cardiology Labs/Tests 04/22/24 15:25: WBC 9.1, RBC 5.34, Hgb 16.5, Hct 47.1, MCV 88.2, MCH 30.9, MCHC 35.0, Plt Count 276, MPV 11.1, Immature Gran % (Auto) 0.400, Neut % (Auto) 64.8, Lymph % (Auto) 24.6, [place] % (Auto) 8.9, Eos % (Auto) 0.8, Baso % (Auto) 0.5, Absolute Neuts (auto) 5.9, Nucleated RBC % 0, PT 15.2 H, INR 1.2, APTT 28.4, Sodium 137, Potassium 4.2, Chloride 109 H, Carbon Dioxide 21.0, Anion Gap 7, BUN 18, Creatinine 1.37 H, Est GFR (MDRD) Af Amer 69, Est GFR (MDRD) Non-Af 57 L, BUN/Creatinine Ratio 13.1, Glucose 105, Calcium 9.0, B-Natriuretic Peptide 628.6 H 04/22/24 17:22: Magnesium 1.9 04/23/24 03:20: WBC 7.3, RBC 4.86, Hgb 15.0, Hct 42.9, MCV 88.3, MCH 30.9, MCHC 35.0, Plt Count 224, MPV 10.5, Immature Gran % (Auto) 0.300, Neut % (Auto) 57.9, Lymph % (Auto) 31.7, [place] % (Auto) 7.7, Eos % (Auto) 1.9, Baso % (Auto) 0.5, Absolute Neuts (auto) 4.2, Nucleated RBC % 0, Sodium 140, Potassium 3.6, Chloride 107, Carbon Dioxide 28.0, Anion Gap 5, BUN 19 H, Creatinine 1.40 H, Est GFR (MDRD) Af Amer 67, Est GFR (MDRD) Non-Af 55 L, BUN/Creatinine Ratio 13.6, Glucose 111 H, Calcium 8.1 L, Total Bilirubin 1.10 H, Triglycerides 105, Cholesterol 155, LDL Cholesterol 94, VLDL Cholesterol 21, HDL Cholesterol 40 Rhythm: EKG: Atrial fibrillation with rapid ventricular response rate ECHO: Stress Test: Cardiac Cath: PCI: CT Surgery: Holter monitor: EPS: PPM: CXR: Chest CT Scan: Radiography Diagnostic Testing: Radiology Impression Chest X-Ray 04/22/24 16:00 IMPRESSION: Normal x-ray examination of the chest. Electronically Signed: Chucky Fletcher MD at 16:12 EST ,
--- NOTE | 2024-04-23 09:54 | PN.HOSP_ITS ---
Subjective Subjective Doing well, no issues overnight. Remains on a Cardizem drip denies any chest pain or shortness of breath Objective Data Objective Data Vital Signs: Vital Signs Temp Pulse Resp BP Pulse Ox O2 Del Method 97 F L 104 H 20 H 127/102 H 96 Room Air 04/23/24 04:00 04/23/24 09:27 04/23/24 09:27 04/23/24 09:27 04/23/24 09:27 04/23/24 09:27 Oxygen Delivery Method Room Air Weight: 230 lb 9.656 oz Body Mass Index (BMI) 32.3 Intake & Output: Intake and Output for Last 24 Hours 04/22/24 04/23/24 04/24/24 03:59 03:59 03:59 Intake Total 1432.50 / 1435.00 657.0 / 657.0 Output Total 1600 / 1600 Balance 1432.50 / 1435.00 -943.0 / -943.0 Lab / Micro Data 04/23/24 03:20 04/23/24 03:20 Labs: Laboratory Results - last 24 hr 04/22/24 15:25: WBC 9.1, RBC 5.34, Hgb 16.5, Hct 47.1, MCV 88.2, MCH 30.9, MCHC 35.0, RDW Std Deviation 37.6, RDW Coeff of Tariq 11.8, Plt Count 276, MPV 11.1, Immature Gran % (Auto) 0.400, Neut % (Auto) 64.8, Lymph % (Auto) 24.6, [place] % (Auto) 8.9, Eos % (Auto) 0.8, Baso % (Auto) 0.5, Absolute Neuts (auto) 5.9, Absolute Lymphs (auto) 2.25, Nucleated RBC % 0, PT 15.2 H, INR 1.2, APTT 28.4, Sodium 137, Potassium 4.2, Chloride 109 H, Carbon Dioxide 21.0, Anion Gap 7, BUN 18, Creatinine 1.37 H, Estim Creat Clear Calc 73.10, Est GFR (MDRD) Af Amer 69, Est GFR (MDRD) Non-Af 57 L, BUN/Creatinine Ratio 13.1, Glucose 105, Calcium 9.0, Troponin I High Sens 15, B-Natriuretic Peptide 628.6 H 04/22/24 17:22: Magnesium 1.9, Troponin I High Sens 13 04/23/24 03:20: WBC 7.3, RBC 4.86, Hgb 15.0, Hct 42.9, MCV 88.3, MCH 30.9, MCHC 35.0, RDW Std Deviation 38.2, RDW Coeff of Tariq 11.9, Plt Count 224, MPV 10.5, Immature Gran % (Auto) 0.300, Neut % (Auto) 57.9, Lymph % (Auto) 31.7, [place] % (Auto) 7.7, Eos % (Auto) 1.9, Baso % (Auto) 0.5, Absolute Neuts (auto) 4.2, Absolute Lymphs (auto) 2.31, Nucleated RBC % 0, Sodium 140, Potassium 3.6, Chloride 107, Carbon Dioxide 28.0, Anion Gap 5, BUN 19 H, Creatinine 1.40 H, Estim Creat Clear Calc 72.03, Est GFR (MDRD) Af Amer 67, Est GFR (MDRD) Non-Af 55 L, BUN/Creatinine Ratio 13.6, Glucose 111 H, Calcium 8.1 L, Total Bilirubin 1.10 H, AST 12 L, ALT 18, Alkaline Phosphatase 58, Troponin I High Sens 14, Total Protein 6.6, Albumin 3.2, Globulin 3.4, Albumin/Globulin Ratio 0.9, Triglycerides 105, Cholesterol 155, LDL Cholesterol 94, VLDL Cholesterol 21, HDL Cholesterol 40, TSH 3.780 H 04/23/24 05:44: Urine Opiates Screen NEGATIVE, Urine Methadone Screen NEGATIVE, Ur Barbiturates Screen NEGATIVE, Ur Phencyclidine Scrn NEGATIVE, Ur Amphetamines Screen NEGATIVE, MDMA (Ecstasy) Screen NEGATIVE, U Benzodiazepines Scrn NEGATIVE, Urine Cocaine Screen NEGATIVE, U Cannabinoids Screen NEGATIVE, Ur Drug Screen Comment 04/23/24 05:50: Troponin I High Sens 12 Micro: Microbiology 04/22/24 13:53 Mucosa - Nose SARS-CoV-2, Influenza & RSV (PCR) - Final Radiography Diagnostic Testing: Radiology Impression Chest X-Ray 04/22/24 16:00 IMPRESSION: Normal x-ray examination of the chest. Electronically Signed: Chucky Fletcher MD at 16:12 EST , Physical Exam Narrative General: Alert, Oriented x3, Cooperative, No apparent distress HEENT: Atraumatic, PERRLA, EOMI, Normocephalic Oral: Moist Mucosa Neck: Supple, No JVD Lungs: Clear to auscultation, Normal air movement, No rhonchi, No wheeze, No rales Cardiovascular: Irregular rate and rhythm, Normal S1, Normal S2, No murmurs Abdomen: Soft, Non Tender, Non-Distended, No Hepato-splenomegaly Extremities: No edema, Capillary Refill Less than 3 Seconds Skin: No rashes, No breakdown Musculoskeletal: No Tenderness to Palpation of Joints or Extremities Neurological: No focal neurological deficits, Motor Exam 5/5 strength throughout, Sensory exam intact to light touch and pain Psych/Mental Status: Normal Affect, Appropriate Assessment & Plan Assessment/Plan (1) Atrial fibrillation with rapid ventricular response: PLAN: Plan 1. Paroxysmal A-fib with RVR ? Unclear as to the etiology at the moment ? Echo is pending ?appreciate cardiology's assistance ? Continue with Cardianna murillo ? Continue with Eliquis 2. CKD 3 A ? At baseline DVT: Eliquis Charges/Coding Visit Charges Inpatient E&M: 70897 Subs Hosp L2
[2024-04-23 10:12] LABS: Troponin-I HS 14 pg/mL (3.0-78.0)
--- NOTE | 2024-04-23 11:52 | CASEMGMT ---
RAY CHARLES Assessment Face to Face with patient for initial transition planning/care coordination assessment. RN MELVIN introduced self and role at [facility], pt voices understanding. Pt is A&Ox4 and is resting comfortably in bed and is calm. Pt SO at bedside. Care providers, pharmacy, and demographics verified. Admitting dx: PAF RVR LACE Strata: 1 PCP: None. Pt denies list and states that he is able to set this up per himself Specialists: KARYNG (Cardio) [facility]erred [facility]acy[facility] Insurance: [employer] Prescription Benefit: Yes LNOK: Amelia Raman (SO) Living Arrangements: Pt lives with his adult son in a single story home with a flat entrance ADLs/IADLs: Ind Transportation: Self, SO. Denies concerns DME: Denies HHC/SNF: Denies history or needs Pt?s goal: Return home and f/u with [facility] Plan: Home with new blood thinning Rx. Per chart review and after discussion with the pt, it is likely that the pt will receive a new Rx for Eliquis. Free trial card provided at this time. However, pt insurance may cover most of the cost. CM will call the pharmacy at time of DC, once the medication(s) are prescribed. Pt states that he is independent and denies further needs such as HH or OP therapy. Pt denies further questions or concerns at this time. Junaid Harrington RN, CM
[2024-04-23] MEDS: Diltiazem 125 MG in Dextrose 5%-Water (100mL Bag) 100 ML 15 MG CONT INF (12:39)
--- NOTE | 2024-04-23 16:15 | CHAPLAIN ---
Type of Pastoral Visit _x__ Initial Visit ___ Follow-up Visit ___ On-call Visit ___ General Patient Visit ___ Spiritual Assessment ___ Family Conference ___ Bereavement ___ Rapid Response ___ Code Blue ___ Other (describe below) Pastoral Care Referral From _x__ Patient ___ Family ___ Nurse ___ Physician ___ Sound Cutter ___ Ordained Minister ___ Other (describe below) Sacrament/Intervention _x__ Active listening ___ Anointing ___ Quaker ___ Bereavement ___ Communion ___ Guerda exploration ___ _x__ Life review ___ Prayer ___ Reconciliation ___ Sacrament of Sick ___ Supportive presence ___ Wedding ___ Other (describe below) Pastoral Comments patient is pleasant and very talkative about his life and situation; pt is very confident about his prognosis and future;
[2024-04-23] MEDS: Metoprolol Tartrate 50 MG Tablet PO (20:15)
[2024-04-24 04:34] LABS: Absolute Lymphocyte Count 2.66 X10^3/uL (0.83-4.51); Absolute Neutrophil Count 6.5 X10^3/uL (2.0-7.7); Basophil# 0.05 X10^3/uL; Basophil% 0.5 % (0-1); Eosinophil# 0.15 X10^3/uL; Eosinophils% 1.5 % (0-5); Hematocrit 43.2 % (40-54); Hemoglobin 15.4 g/dL (13.0-16.5); Lymphocyte # 2.66 X10^3/ul (0.83-4.51); Lymphocyte % 26.5 % (19-41); Mean Corp Hgb Conc 35.6 g/dL (32-36); Mean Corpuscular Hgb 30.9 pg (27.0-32.0); Mean Corpuscular Volume 86.6 fL (80-94); Mean Platelet Vol. 10.5 fl (6.2-12.0); Monocyte# 0.62 X10^3/uL; Monocyte% 6.2 % (0-10); NRBC Flagged by Analyzer 0 % (0-5); Neutrophil # 6.53 X10^3/uL (2.7-7.7); Neutrophil % 64.9 % (47-70); Platelet Count 261 K/mm3 (150-450); RBC Distribution Width CV 11.7 % (11.6-14.6); RBC Distribution Width SD 37.2 fl (35.1-43.9); Red Blood Count 4.99 M/mm3 (4.6-6.2); White Blood Count 10.1 K/mm3 (4.4-11.0)
[2024-04-24 04:50] LABS: Anion Gap 6 (5-15); BUN 19 mg/dL (7-18); Calcium,Total 8.8 mg/dL (8.5-10.1); Chloride 106 mmol/L (98-107); Creatinine, Serum 1.27 mg/dL (0.70-1.30); EST Glomerular Filtration Rate 62 mL/min (>60); Est Glom Filt Rate - Afr Amer 75 mL/min (>60); Estimated Creatinine Clearance 78.99 ml/min; Glucose 111 mg/dL (74-106); Potassium 3.8 mmol/L (3.5-5.1); Sodium Level 136 mmol/L (136-145)
[2024-04-24 06:00] VITALS: BMI 32.3
[2024-04-24 08:23] VITALS: BP 124/108; PULSE 102; RESP 10; TEMP 36.2; O2SAT 95
[2024-04-24 08:33] VITALS: PULSE 94
[2024-04-24] MEDS: APIXABAN 5 MG TABLET PO (08:33)
[2024-04-24] MEDS: Metoprolol Tartrate 50 MG Tablet PO (08:33)
[2024-04-24 08:43] VITALS: PULSE 123
--- NOTE | 2024-04-24 12:29 | DCINST_ITS ---
Discharge Instructions Diet Discharge Diet: Low fat / Low cholesterol DC O2, CPAP, BIPAP needs Additional Home O2 Discharge instructions: No Dressing / Incision Discharge Activity: Return to Normal Activity Dressing / Incision Call your doctor if you observe: Fever of 101 or Higher, Shortness of breath, Dizziness, Fainting spells, Swelling in the ankles, Chest pain and Increased palpitations (irregular heartbeat) Follow Up Care Test Results: Test results from this visit will be discussed in further detail at your follow- up appointment, if applicable. Discharge Plan Admission Admit Date/Time: 04/22/24 22:13 Attending Provider: Osmany Palomino Primary Care Provider: Care Physician,No Primary Consulting Providers: Ricardo Munson; Renee Wall Discharge Orders/Prescriptions Prescriptions: New metoprolol tartrate 50 mg Tablet 50 mg PO BID 30 Days Qty: 60 3RF Eliquis 5 mg Tablet 5 mg PO BID 30 Days Qty: 60 3RF Referrals / Follow Up: Ricardo Munson MD [Med Staff - Active Staff] - Within 1 Month Care Physician,No Primary [Primary Care Provider] - Disposition Disposition (needs filled in before D/C Order can be placed): Home, Self Care
[2024-04-24 12:42] VITALS: PULSE 87
[2024-04-24 12:52] VITALS: BP 145/107; PULSE 89; O2SAT 94
--- NOTE | 2024-04-24 13:00 | CASEMGMT ---
RN CM noted DC order in, called Jimmye Clifton for Elimarlyis and pharmacist stated there is no cost. Notified Pt.
--- NOTE | 2024-04-24 14:24 | DS.PCM_ITS ---
Providers Date of Admission: 04/22/24 Primary Care Physician: No Primary Care Phys Consultations 04/22/24 23:32 Consult: Cardiology Routine Consulting Provider: Ricardo Munson Reason for Consult: PAF RVR EMERGENT Consult: No MD Notified: Yes Date Notified: 04/22/24 Time Notified: 22:14 Method of Notification: ED Physician Initiated Reason For Visit: PAF RVR Diagnosis Discharge Diagnosis (1) Atrial fibrillation with rapid ventricular response: Status: Acute Code(s): I48.91 - Unspecified atrial fibrillation Medications at Discharge Home Medications apixaban 5 mg tablet (Eliquis) 5 mg PO BID 30 days #60 tabs 04/24/24 metoprolol tartrate 50 mg tablet 50 mg PO BID 30 days #60 tabs 04/24/24 Hospital Course Operations None Procedures 2-D Echocardiogram Summary of Care Provided Minutes Spent on Discharge: 36 Hospital Course: Per HPI: The patient is a 58 y/o M w/ PMHx: Obesity, CKD stage III unclear subtype based on prior GFR trending who presents to the [facility] ED on 04/22/2024 with onset of palpitations intermittent over the last week with sensation of chest congestion primarily in the lower chest and posterior thoracic region worse in the morning with urgent care evaluation with chest x-ray with no marked findings there but they reported he was in an irregular rhythm and referred to the ED for concern for atrial fibrillation with no associated chest pain or fevers or chills nor shortness of breath with previous history of paroxysmal A- fib noted to be cardioverted twice in the past with a cardiac catheterization back in May on year of presentation which was reportedly normal but given ongoing symptoms was referred to the ED for further evaluation. He denied specifically any palpitations or chest pain associated. He does report that he previously been on Eliquis but his prescription ran out and it is unclear what other medication he may have been on. Workup in the ED included T97, heart rate 83, BP 117/100, respiratory rate 18, 100% on room air with various fluctuations in his heart rate ranging up to 132, most recent repeat vital signs heart rate 111, BP 126/92, respiratory rate 26, 99% on room air, CBC with WBC 9.1, human 16.5, platelet 276 without marked shift, coags with PT 15.2 otherwise unremarkable, BMP with chloride 109, BUN/creatinine 18/1.37, GFR 57, troponin initially 15 with repeat delta 13, BNP 628.6, chest x-ray with no acute cardiopulmonary findings, rapid SARS COVID/influenza/RSV PCR negative, EKG with atrial fibrillation with nonspecific changes with no acute evidence of ischemia with RVR. In the ED patient administered diltiazem 25 mg IV bolus x 1 as well as 1 L normal saline and eventually placed on a Cardizem drip. ED discussed case with Dr. Munson Cardiology who requested BNP. Hospital Course: 1. Paroxysmal A-fib with RVR/chronic systolic CHF?58-year-old male presented to the hospital with palpitations. He had had a cardiac catheterization at outside hospital in May that was unremarkable with no lesions requiring intervention but at that time he did have a reduced EF. He was not taking any medications on arrival to this hospital but he was found to be in A-fib with RVR and he was started on a Cardizem drip. Cardiology was consulted and recommended an echocardiogram and transitioned him from Cardizem drip to metoprolol 50 mg p.o. twice daily. On the day of discharge she was still in A-fib but it was much better rate controlled. Echo during this admission with an EF of 35% and a PASP of 44 mmHg. He has moderate global hypokinesis of left ventricle but it does appear that this is likely consistent with his evaluation back in May. Will recommend he follow-up with cardiology as an outpatient in about a month. In the meantime we will continue with Eliquis as well as metoprolol as his cardiomyopathy is likely related to A-fib given his clean coronary arteries. I discussed with him the plan for discharge today he expressed understanding of the risks and benefits of going home and would like to go home today. Physical Exam Narrative General: Alert, Oriented x3, Cooperative, No apparent distress HEENT: Atraumatic, PERRLA, EOMI, Normocephalic Oral: Moist Mucosa Neck: Supple, No JVD Lungs: Clear to auscultation, Normal air movement, No rhonchi, No wheeze, No rales Cardiovascular: Irregular rate and rhythm, Normal S1, Normal S2, No murmurs Abdomen: Soft, Non Tender, Non-Distended, No Hepato-splenomegaly Extremities: No edema, Capillary Refill Less than 3 Seconds Skin: No rashes, No breakdown Musculoskeletal: No Tenderness to Palpation of Joints or Extremities Neurological: No focal neurological deficits, Motor Exam 5/5 strength throughout, Sensory exam intact to light touch and pain Psych/Mental Status: Normal Affect, Appropriate Weight / BMI Weight Weight: 231 lb 11.293 oz Body Mass Index (BMI) 32.3 ABG / Lab / Microbiology Data 04/24/24 04:16 04/24/24 04:16 Laboratory: Laboratory Results - last 24 hr 04/24/24 04:16: WBC 10.1, RBC 4.99, Hgb 15.4, Hct 43.2, MCV 86.6, MCH 30.9, MCHC 35.6, RDW Std Deviation 37.2, RDW Coeff of Tariq 11.7, Plt Count 261, MPV 10.5, Immature Gran % (Auto) 0.400, Neut % (Auto) 64.9, Lymph % (Auto) 26.5, [place] % (Auto) 6.2, Eos % (Auto) 1.5, Baso % (Auto) 0.5, Absolute Neuts (auto) 6.5, Absolute Lymphs (auto) 2.66, Nucleated RBC % 0, Sodium 136, Potassium 3.8, Chloride 106, Carbon Dioxide 24.0, Anion Gap 6, BUN 19 H, Creatinine 1.27, Estim Creat Clear Calc 78.99, Est GFR (MDRD) Af Amer 75, Est GFR (MDRD) Non-Af 62, BUN/Creatinine Ratio 15.0, Glucose 111 H, Calcium 8.8 Microbiology: Microbiology 04/22/24 13:53 Mucosa - Nose SARS-CoV-2, Influenza & RSV (PCR) - Final D/C Instructions Discharge Diet: Low fat / Low cholesterol Call your doctor if you observe: Fever of 101 or Higher, Shortness of breath, Dizziness, Fainting spells, Swelling in the ankles, Chest pain and Increased palpitations (irregular heartbeat) DC O2, CPAP, BIPAP Needs Additional Home O2 Discharge instructions: No DC home with Oxygen: No Meaningful Use Info Meaningful Use Meaningful Use Diagnoses (Choose all that apply): None applicable Ischemic Stroke Statin Dosing Therapy Reference: STATIN DOSE THERAPY REFERENCE: * Patients > 75 years receive moderate or high dose statin therapy. * Patients 75 years or YOUNGER should receive HIGH intensity statin dose unless contraindicated. You will be required to document reason for non-treatment if statin daily dose does not meet guidelines. HIGH DOSE STATIN THERAPY DAILY Atorvastatin > than or = to 40 mg Rosuvastatin > than or = to 20 mg Amlodipine + Atorvastatin > than or = to 2.5/40 mg Ezetimibe + Simvastatin 10/80 mg Simvastatin 80mg Discharge Plan Admission Admit Date/Time: 04/22/24 22:13 Attending Provider: Osmany Palomino Primary Care Provider: Care Physician,No Primary Consulting Providers: Ricardo Munson; Renee Wall Instructions Patient Instructions: AFib Dc, AFib Preventing Stroke, AFib Discharge Orders/Prescriptions Prescriptions: New metoprolol tartrate 50 mg Tablet 50 mg PO BID 30 Days Qty: 60 3RF Eliquis 5 mg Tablet 5 mg PO BID 30 Days Qty: 60 3RF Referrals / Follow Up: Ricardo Munson MD [Med Staff - Active Staff] - Within 1 Month Care Physician,No Primary [Primary Care Provider] - Disposition Disposition (needs filled in before D/C Order can be placed): Home, Self Care Charges/Coding Visit Charges Inpatient E&M: 23611 Disch Hosp >30min
== END 2024-04-24 13:35 | disposition home or self-care (01) | DRG 201 ==
LOC: ED 20:42 → ICU 23:13
PROVIDERS: Admitting Provider Family Medicine; Emergency Provider Emergency Medicine; Visit Provider Family Medicine
DX: I48.0 Paroxysmal atrial fibrillation (principal); E66.9 Obesity, unspecified; I50.22 Chronic systolic (congestive) heart failure; N18.31 Chronic kidney disease, stage 3a; Z68.32 Body mass index [BMI] 32.0-32.9, adult; R03.0 Elevated blood-pressure reading, without diagnosis of hypertension; Z11.52 Encounter for screening for COVID-19; Z79.01 Long term (current) use of anticoagulants
CPT/HCPCS: 36415; 71046; 80048; 80053; 80061; 80307; 83735; 83880; 84443; 84484; 85025; 85610; 85730; 87631; 93306; 94668; 97802; 99285; J7030; Q9957; A4216; J1940

== ENCOUNTER 2024-05-26 13:10 | Emergency (ER) | payer MEDICAID, SELFPAY ==
[2024-05-26 13:10] VITALS: BP 145/115; PULSE 110; RESP 20; TEMP 36.4; O2SAT 98; BMI 31.5
[2024-05-26 14:10] VITALS: BP 142/104; PULSE 131; RESP 18; O2SAT 98
--- NOTE | 2024-05-26 14:56 | EKG12_ITS ---
Test Reason : CHEST TIGHTNESS Blood Pressure : */* mmHG Vent. Rate : 142 BPM Atrial Rate : 340 BPM P-R Int : * ms QRS Dur : 84 ms QT Int : 298 ms P-R-T Axes : * 20 17 degrees QTcB Int : 458 ms Critical Test Result: High HR Atrial fibrillation with variable A-V block Nonspecific T wave abnormality Abnormal ECG Confirmed by AUGUSTUS BLACKWELL, SAMUEL ([id number]), news assignment editor GAGAN AVRELA ([id number]) on 05/27/2024 9:22:40 AM Referred By: JEANCARLOS Confirmed By: SAMUEL COFFMAN MD
[2024-05-26 15:00] VITALS: BP 137/109; PULSE 133; RESP 16; O2SAT 95
[2024-05-26 15:10] LABS: Hematocrit 47.8 % (40-54); Hemoglobin 16.2 g/dL (13.0-16.5); Mean Corp Hgb Conc 33.9 g/dL (32-36); Mean Corpuscular Volume 88.5 fL (80-94); Mean Platelet Vol. 11.4 fl (6.2-12.0); Platelet Count 305 K/mm3 (150-450); RBC Distribution Width CV 13.2 % (11.6-14.6); RBC Distribution Width SD 41.8 fl (35.1-43.9); White Blood Count 10.8 K/mm3 (4.4-11.0)
[2024-05-26] MEDS: dilTIAZem 25 MG/5 ML Vial 20 MG IV BOLUS (15:23)
[2024-05-26 15:39] LABS: Anion Gap 10 (5-15); BUN 27 mg/dL (7-18); BUN/Creat Ratio 16.9 RATIO (10-20); Calcium,Total 9.1 mg/dL (8.5-10.1); Chloride 106 mmol/L (98-107); EST Glomerular Filtration Rate 48 mL/min (>60); Est Glom Filt Rate - Afr Amer 57 mL/min (>60); Estimated Creatinine Clearance 62.11 ml/min; Glucose 89 mg/dL (74-106); Potassium 4.6 mmol/L (3.5-5.1); Sodium Level 138 mmol/L (136-145); Troponin-I HS 25 pg/mL (3.0-78.0)
--- NOTE | 2024-05-26 15:43 | EX.ED.DYSGE1 ---
HPI History of Present Illness Chief Complaint: Palpitations Detail of Chief Complaint: History of atrial fibrillation. Who presents with chest tightness. Informant: patient and spouse/S.O. Onset/Context/Timing Onset: Days (Greater the past 5 to 6 days.) and Weeks Context: Sudden Onset (No associated to activity, position or food.) Timing: Intermittent Quality: Pressure Location: Central chest Current Severity: Gone Maximum Severity: Moderate Worsened by: Nothing Relieved by: Nothing Associated Symptoms Associated Symptoms: No associated symptoms or radiation Narrative Narrative: Patient is a 58-year-old male. He was diagnosed with new onset atrial fibrillation April 22. He was discharged to home on metoprolol and apixaban. Apparently he discontinued the metoprolol. He discontinued because he felt he was having allergic reaction. His symptoms were shortness of breath. Patient presently has no chest pain. He denies orthopnea. He notices the pain more at night when he is lying in bed. He denies leg pain, swelling discoloration. He denies PND. He denies orthostatic symptoms. He denies black or maroon-colored stool. Prior similar symptoms: No Recent Illness/Hospitalization: No PFSH PFSH Medical History Atrial fibrillation with rapid ventricular response Obesity CKD (chronic kidney disease), stage III Paroxysmal atrial fibrillation Home Medications ?Medication ?Instructions ?Recorded ?Last Taken ?Type apixaban 5 mg tablet (Eliquis) 5 mg PO BID 30 days #60 tabs 04/24/24 Unknown Rx metoprolol tartrate 50 mg tablet 50 mg PO BID 30 days #60 tabs 04/24/24 Unknown Rx diltiazem HCl 180 mg 180 mg PO DAILY #30 caps 05/26/24 Unknown Rx capsule,extended release 24 hr (Cardizem CD) Allergy/AdvReac Type Severity Reaction Status Date / Time Penicillins (PCN) Allergy Rash Verified 04/22/24 14:58 metoprolol AdvReac Intermediate Shortness Verified 05/26/24 15:15 of breath Family History Father CAD (coronary artery disease) Hypertension Myocardial infarction Mother No problems noted. Surgical History No significant past surgical history Social History household members: none Smoking Status: Never smoker alcohol intake: never substance use type: does not use ROS ROS ED Constitutional Constitutional ED: Denies chills, fever(s), subjective, sweats or weight loss Eyes Eyes: Denies blurry vision, change in vision or diplopia ENT ENT ED: Denies ear pain, rhinorrhea or sore throat Cardiovascular Cardiovascular: Reports chest pain, palpitations and racing heartbeat; Denies orthopnea or paroxysmal nocturnal dyspnea Respiratory/Chest Respiratory/Chest: Denies cough, dyspnea, dyspnea on exertion, orthopnea or paroxysmal nocturnal dyspnea Gastrointestinal Gastrointestinal: Denies abdominal pain, constipation, diarrhea, melena, nausea or vomiting Integumentary Denies rash Psychiatric Psychiatric: Denies anxiety or depression Hematologic/Lymphatic Hematologic/Lymphatic: Reports systems reviewed and no addt'l complaints, except as documented EXAM Physical Exam Const Vital Signs: 05/26/24 13:10 05/26/24 14:10 05/26/24 15:00 Temperature 97.5 F L Temperature Source Temporal Pulse Rate 110 H 131 H 133 H Respiratory Rate 20 H 18 16 Blood Pressure 145/115 H 142/104 H 137/109 H Blood Pressure Mean 125 116 118 Pulse Ox 98 98 95 Oxygen Delivery Method Room Air Room Air Room Air Positive well nourished and well developed Constitutional Narrative: Blood pressure noted to be elevated. Patient is tachycardic and monitor reveals a narrow complex irregular regular rhythm consistent with atrial fibrillation. General Appearance ED: well developed and NAD; Negative for cyanotic, diaphoretic or pallor HEENT Reports moist mucous membranes HEENT Narrative: Head is atraumatic normocephalic. Ears normal. Nares patent. Posterior pharynx is normal. Eyes PERRL and EOMs intact bilaterally General Eye ED: Negative for pale conjunctiva or scleral icterus Neck no lymphadenopathy, supple and no JVD Resp normal respiratory effort and clear to auscultation bilaterally Cardio S1 normal heart sound, S2 normal heart sound and no murmurs Rate: tachycardic Rhythm: abnormal rhythm irregularly irregular GI normal to inspection, nondistended, normoactive bowel sounds, non-tender, non-distended and no masses; Negative for hepatosplenomegaly Auscultation: normoactive bowel sounds Palpation: soft Back/Spine no CVA tenderness Extremity normal to inspection General Extremety ED: Negative for edema or tenderness General Extremity: Negative for edema Neuro oriented x3, CN's II-XII intact bilaterally and no sensory deficits noted Sensorium / Orientation: alert Motor Exam: strength 5/5 throughout Psych mental status grossly normal Skin no rashes or lesions noted, no wounds and skin turgor normal General Skin Exam: Negative for jaundice or pallor MDM MDM MDM Narrative Medical decision making narrative: Patient with A-fib RVR because of noncompliance with metoprolol. Initially my orders did not go through and I accidentally clicked on Reglan versus metoprolol. History & Record Review Additional record(s) reviewed:: Prior ED visit (ER note authored by Dr. Arcadio Powers on 04/22/2024 was read. Patient was to follow-up with Dr. Cooper.) and Prior labs Lab Data Attestation: I reviewed the patient's lab results. Lab results narrative: CBC is unremarkable. Basic metabolic panel reveals an elevated creatinine of 1.6. Patient's creatinine on April 24, 2024 was 1.27 with an estimated GFR of 62. His estimated GFR now is 48. Labs: Laboratory Results - last 24 hr 05/26/24 13:20 WBC 10.8 RBC 5.40 Hgb 16.2 Hct 47.8 MCV 88.5 MCH 30.0 MCHC 33.9 RDW Std Deviation 41.8 RDW Coeff of Tariq 13.2 Plt Count 305 MPV 11.4 Sodium 138 Potassium 4.6 Chloride 106 Carbon Dioxide 22.0 Anion Gap 10 BUN 27 H Creatinine 1.60 H Estim Creat Clear Calc 62.11 Est GFR (MDRD) Af Amer 57 L Est GFR (MDRD) Non-Af 48 L BUN/Creatinine Ratio 16.9 Glucose 89 Calcium 9.1 Troponin I High Sens 25 Rhythm Strip Rhythm Strip: A-fib Rate: 136 Ectopy: None EKG Initial EKG: Attestation: I personally reviewed and interpreted this EKG as follows: Interpretation: Atrial Fibrillation (Heart rate is under 42. QRS duration 84 ms. QT durations are 98 ms. [place] is normal. EKG reveals atrial for flutter with variable block. There is nonseptic ST-T wave changes noted.) Treatment and Re-Evaluation :: Initially metoprolol was ordered. He reports allergy. In light of this diltiazem was ordered. Comments:: Patient was reassessed at 1605. Patient's heart rate is varying between 78 and 91. Monitor is consistent with atrial fibrillation at this point. Patient was discharged with prescription for diltiazem. He has an appointment to see Dr. Munson on May 29. Discharge Plan Triage Chief Complaint: Palpitations ED Provider: Brandon Thurston Dx/Rx/DC Orders Clinical Impression: Atrial flutter with rapid ventricular response, Elevated blood pressure reading, Noncompliance with medications Instructions: ED Atrial Flutter Prescriptions: New diltiazem HCl [Cardizem CD] 180 mg capsule,extended release 24hr 180 mg PO DAILY Qty: 30 0RF No Action metoprolol tartrate 50 mg Tablet 50 mg PO BID 30 Days Qty: 60 3RF Eliquis 5 mg Tablet 5 mg PO BID 30 Days Qty: 60 3RF Primary Care Provider: Care Physician,No Primary Referrals: Ricardo Munson MD [Med Staff - Active Staff] - Keep Leon appointment Care Physician,No Primary [Primary Care Provider] - Print Language: Nigerien Disposition Disposition: Home, Self Care
[2024-05-26 16:00] VITALS: BP 140/108; PULSE 77; RESP 16; O2SAT 98
[2024-05-26 16:16] VITALS: BP 140/108; PULSE 77; RESP 16; TEMP 36.4; O2SAT 98
== END 2024-05-26 16:16 | disposition home or self-care (01) ==
PROVIDERS: Emergency Provider Emergency Medicine; Visit Provider Emergency Medicine
DX: I48.92 Unspecified atrial flutter (principal); I48.0 Paroxysmal atrial fibrillation; N18.30 Chronic kidney disease, stage 3 unspecified; Z79.01 Long term (current) use of anticoagulants; R03.0 Elevated blood-pressure reading, without diagnosis of hypertension; Z91.148 Patient's other noncompliance with medication regimen for other reason; R07.89 Other chest pain; Z79.899 Other long term (current) drug therapy
CPT/HCPCS: 80048; 84484; 85027; 93005; 96374; 99283; A4216

== ENCOUNTER 2024-06-09 19:18 | Emergency (ER) | payer MEDICAID, SELFPAY ==
[2024-06-09] VITALS (7 sets, daily range): BP systolic 92–151; BP diastolic 76–124; PULSE 95–142; RESP 18–23; TEMP 36.4; O2SAT 93–98; BMI 31.5
--- NOTE | 2024-06-09 19:24 | EKG12_ITS ---
Test Reason : CP Blood Pressure : */* mmHG Vent. Rate : 137 BPM Atrial Rate : * BPM P-R Int : * ms QRS Dur : 82 ms QT Int : 328 ms P-R-T Axes : * 21 85 degrees QTcB Int : 495 ms Atrial fibrillation with rapid ventricular response with premature ventricular or aberrantly conducte d complexes Nonspecific T wave abnormality Abnormal ECG Confirmed by GWEN BLACKWELL, CLIFFORD ([id number]), book or script editor GAGAN VARELA ([id number]) on 06/11/2024 6:27:35 AM Referred By: JASON Confirmed By: CLIFFORD HIDALGO MD
--- NOTE | 2024-06-09 19:45 | RAD_ITS ---
INDICATION: chest pain EXAMINATION/TECHNIQUE: X-RAY - XR Chest 1 View COMPARISON: April 22, 2024 FINDINGS: LINES/DEVICES: None. LUNGS: No consolidation, edema or effusion. No pneumothorax. MEDIASTINUM AND CARDIOVASCULAR STRUCTURES: Cardiac silhouette not enlarged. Central airways and mediastinal contour are unremarkable. BONES AND SOFT TISSUES: Unremarkable. RAD/Chest 1 View (Portable) IMPRESSION: No radiographic evidence of acute cardiopulmonary disease. Electronically Signed: Mark Holcomb DO at 20:21 EST ,
[2024-06-09] MEDS: dilTIAZem 25 MG/5 ML Vial 20 MG IV BOLUS (20:10)
[2024-06-09 20:13] LABS: Absolute Lymphocyte Count 2.45 X10^3/uL (0.83-4.51); Absolute Neutrophil Count 6.8 X10^3/uL (2.0-7.7); Basophil# 0.06 X10^3/uL; Basophil% 0.6 % (0-1); Eosinophil# 0.07 X10^3/uL; Eosinophils% 0.7 % (0-5); Hematocrit 48.1 % (40-54); Hemoglobin 16.3 g/dL (13.0-16.5); Lymphocyte # 2.45 X10^3/ul (0.83-4.51); Lymphocyte % 24.3 % (19-41); Mean Corp Hgb Conc 33.9 g/dL (32-36); Mean Corpuscular Hgb 30.3 pg (27.0-32.0); Mean Corpuscular Volume 89.4 fL (80-94); Mean Platelet Vol. 11.1 fl (6.2-12.0); Monocyte# 0.65 X10^3/uL; Monocyte% 6.4 % (0-10); NRBC Flagged by Analyzer 0 % (0-5); Neutrophil # 6.84 X10^3/uL (2.7-7.7); Neutrophil % 67.7 % (47-70); Platelet Count 300 K/mm3 (150-450); RBC Distribution Width CV 14.5 % (11.6-14.6); RBC Distribution Width SD 46.2 fl (35.1-43.9); Red Blood Count 5.38 M/mm3 (4.6-6.2); White Blood Count 10.1 K/mm3 (4.4-11.0)
[2024-06-09 20:16] LABS: Anion Gap 10 (5-15); BUN 28 mg/dL (7-18); BUN/Creat Ratio 17.8 RATIO (10-20); Calcium,Total 9.2 mg/dL (8.5-10.1); Chloride 111 mmol/L (98-107); Creatinine, Serum 1.57 mg/dL (0.70-1.30); EST Glomerular Filtration Rate 49 mL/min (>60); Est Glom Filt Rate - Afr Amer 59 mL/min (>60); Estimated Creatinine Clearance 63.28 ml/min; Glucose 110 mg/dL (74-106); Potassium 4.1 mmol/L (3.5-5.1); Sodium Level 139 mmol/L (136-145); Troponin-I HS (w/2H Reflex) 30 pg/mL (3.0-78.0)
--- NOTE | 2024-06-09 20:39 | EDS_ITS ---
HPI History of Present Illness Chief Complaint: Chest Pain Informant: patient Narrative Narrative: History of paroxysmal A-fib initially diagnosed a year ago on Eliquis twice a day has been compliant. Initially diagnosed seen [facility] he states was cardioverted there has been fine up to recently. Reported last 3 weeks worsening dyspnea with with laying flat. No cough or chest pains. Denies lightheaded symptoms. Does not feel palpitations or racing heart. Minimal leg swelling states previous similar symptoms improved with diuretics. [facility] had a heart cath at [facility] which was negative. He did not take his Cardizem today due to feeling his symptoms. States he was hospitalized here in April for couple days receiving IV diuretics with improvement of symptoms. He follow-up with cardiology clinic, he states his Cardizem was increased. Prior similar symptoms: Yes PFSH PFSH Medical History Atrial fibrillation with rapid ventricular response Obesity CKD (chronic kidney disease), stage III Paroxysmal atrial fibrillation Home Medications ?Medication ?Instructions ?Recorded ?Last Taken ?Type apixaban 5 mg tablet (Eliquis) 5 mg PO BID 30 days #60 tabs 04/24/24 Unknown Rx azithromycin 250 mg tablet See Rx Instructions PO .COMPLEX #6 05/29/24 Unknown Rx (Zithromax Z-Justin) tabs diltiazem HCl 240 mg 240 mg PO QAM #30 caps 05/29/24 Unknown Rx capsule,extended release 24 hr furosemide 40 mg tablet (Lasix) 40 mg PO DAILY #10 tabs 06/10/24 Unknown Rx Allergy/AdvReac Type Severity Reaction Status Date / Time Penicillins (PCN) Allergy Rash Verified 06/09/24 19:24 metoprolol AdvReac Intermediate Shortness Verified 06/09/24 19:24 of breath Family History Father CAD (coronary artery disease) Hypertension Myocardial infarction Mother No problems noted. Surgical History History of right and left heart catheterization (05/2023) No significant past surgical history Social History household members: none Smoking Status: Never smoker alcohol intake: never substance use type: does not use caffeine: No ROS ROS ED Constitutional Constitutional ED: Denies chills, fever(s) or sweats ENT ENT ED: Denies sore throat Cardiovascular Cardiovascular: Reports leg edema and orthopnea; Denies chest pain, palpitations or racing heartbeat Respiratory/Chest Respiratory/Chest: Reports dyspnea, dyspnea on exertion and orthopnea; Denies cough Gastrointestinal Gastrointestinal: Denies abdominal pain, diarrhea, nausea or vomiting Genitourinary Genitourinary ED: Denies dysuria, hematuria or urinary frequency Musculoskeletal Musculoskeletal: Denies back pain, extremity pain or neck pain Integumentary Denies rash or wounds Neurologic Neurologic: Denies headache(s), paresthesias or weakness EXAM Physical Exam Const Vital Signs: 06/09/24 19:20 06/09/24 19:40 06/09/24 19:40 Temperature 97.6 F L Temperature Source Oral Pulse Rate 124 H 142 H Respiratory Rate 18 18 Respiratory Effort Blood Pressure 100/87 H 151/124 H Blood Pressure Mean 91 133 Pulse Ox 98 98 Oxygen Delivery Method Room Air Room Air Room Air 06/09/24 19:40 06/09/24 20:20 06/09/24 20:23 Temperature Temperature Source Pulse Rate 95 114 H Respiratory Rate 23 H 22 H Respiratory Effort Normal Non-Labored Blood Pressure 92/76 92/76 Blood Pressure Mean 81 81 Pulse Ox 93 95 Oxygen Delivery Method Room Air 06/09/24 21:11 06/09/24 21:46 06/09/24 22:52 Temperature Temperature Source Pulse Rate 108 H 116 H 110 H Respiratory Rate 18 20 H 18 Respiratory Effort Blood Pressure 102/87 H 117/88 H 126/91 H Blood Pressure Mean 92 97 102 Pulse Ox 94 93 97 Oxygen Delivery Method Room Air Room Air 06/10/24 00:00 06/10/24 00:17 Temperature Temperature Source Pulse Rate 113 H 107 H Respiratory Rate 15 18 Respiratory Effort Blood Pressure 131/113 H 129/87 H Blood Pressure Mean 119 101 Pulse Ox 95 98 Oxygen Delivery Method Room Air Room Air Positive well nourished and well developed General Appearance ED: well developed and NAD HEENT Reports moist mucous membranes normocephalic and atraumatic Eyes General Eye ED: Yes normal appearance of both eyes Neck full ROM Chest Wall Chest: Negative for tenderness Resp normal respiratory effort and normal air movement Effort and Inspection: symmetric chest movement; Negative for respiratory distress Cardio no murmurs Rate: tachycardic Rhythm: abnormal rhythm Peripheral Pulses: pulses 2+ throughout GI normal to inspection, nondistended, normoactive bowel sounds and non-tender Palpation: Negative for guarding or rebound tenderness present Extremity normal to inspection Extremity Narrative: Minimal lower extremity edema. General Extremety ED: Yes edema; Negative for tenderness General Extremity: edema Neuro oriented x3 and no sensory deficits noted Sensorium / Orientation: awake and alert Skin no rashes or lesions noted and no wounds MDM MDM MDM Narrative Medical decision making narrative: Interventions / MDM: Differential diagnosis: Atrial fibrillation, CKD, heart failure Diagnosis considered but do not suspect: Pulmonary embolism however he is on Eliquis and being compliant with this medications. My EKG interpretation: A-fib rate of 137, no ST changes. Imaging independently reviewed and interpreted by myself: 1 view chest x-ray: No acute process. External documents reviewed: Echocardiogram 04/22/2024 EF 35%. Cardiology note visit from 05/29/2024 with 06/06/2024. Seen [facility] found to have decompensated heart failure EF of 10%. Heart cath was negative. ED visit prior to this he stopped his metoprolol concerning side effects therefore switch back to Cardizem. He was increased to 240 mg in cardiology office. There was plan for further treatment for his A-fib once more results are back including medications and potential referral for ablation evaluation. Test considered but not ordered:N/A ED course: Patient Jesus-azra with RVR of minimal leg edema with orthopnea. Not on any home diuretics. Heart rates 130s to 140s blood pressure systolic 120s. At this time we will try to rate control with IV Cardizem will check labs chest x- ray and BNP. Cardiac enzymes also ordered. 2305: BNP 81 chest x-ray negative. Troponin 3025. Creatinine 1.57 stable from his previous labs. Hemoglobin 16.3. 40 mg IV Lasix was given. He had increasing urination and reevaluation. He is clinically feeling better. Heart rate 100s to 110s. Blood pressure systolic 120s. He was increased to 240 mg recently did not like this he like to 180 mg better. Therefore his dose with oral 180 mg in the ED. 0025: Clinically improved not hypoxic rate controlled. Considered admission however clinically feeling better. Cardiac workup negative. He is diuresing the ED. With findings last EF 35% with cardiomyopathy. Blood pressure stable continue Lasix 40 mg daily for the next 10 days. Discussed with him to call follow-up with cardiology office for further discussion for treatment options for this. He will figure out his dry weight, additional medications. He states he only wants to take 180 mg of Cardizem for which she has prescription at home. He will continue his Eliquis. All questions were answered. Re-evaluation: stable Disposition discussed with patient/family/significant other: Patient and spouse Case discussed with consulting clinician: N/A This note was generated with [employer] dictation software. It may contain incorrect words, spelling, and punctuation that were not noted in checking the note before signing. Lab Data Attestation: I reviewed the patient's lab results. Labs: Laboratory Results - last 24 hr 06/09/24 06/09/24 19:42 21:50 WBC 10.1 RBC 5.38 Hgb 16.3 Hct 48.1 MCV 89.4 MCH 30.3 MCHC 33.9 RDW Std Deviation 46.2 H RDW Coeff of Tariq 14.5 Plt Count 300 MPV 11.1 Immature Gran % (Auto) 0.300 Neut % (Auto) 67.7 Lymph % (Auto) 24.3 [place] % (Auto) 6.4 Eos % (Auto) 0.7 Baso % (Auto) 0.6 Absolute Neuts (auto) 6.8 Absolute Lymphs (auto) 2.45 Nucleated RBC % 0 Sodium 139 Potassium 4.1 Chloride 111 H Carbon Dioxide 18.0 L Anion Gap 10 BUN 28 H Creatinine 1.57 H Estim Creat Clear Calc 63.28 Est GFR (MDRD) Af Amer 59 L Est GFR (MDRD) Non-Af 49 L BUN/Creatinine Ratio 17.8 Glucose 110 H Calcium 9.2 Troponin I High Sens 30 25 B-Natriuretic Peptide 881.0 H Radiography Diagnostic Testing: Clinical Impression(s) from Imaging Studies Chest X-Ray 06/09/24 19:45 IMPRESSION: No radiographic evidence of acute cardiopulmonary disease. Electronically Signed: Mark Holcomb DO at 20:21 EST Reading Location ID and State: [facility] / [place] Tel [phone], Service support , Discharge Plan Triage Chief Complaint: Chest Pain ED Provider: Pteey An Dx/Rx/DC Orders Clinical Impression: Atrial fibrillation, Nonischemic congestive cardiomyopathy, CKD (chronic kidney disease), stage III Instructions: Cardiomyopathy Dc, CKD Dc, ED AFIB Prescriptions: New furosemide [Lasix] 40 mg tablet 40 mg PO DAILY Qty: 10 0RF No Action diltiazem HCl 240 mg capsule,extended release 24hr 240 mg PO QAM Qty: 30 11RF azithromycin [Zithromax Z-Justin] 250 mg tablet See Rx Instructions PO .COMPLEX Qty: 6 0RF Rx Instructions: For 250 mg dose pack: take 500 mg today (day 1), then 250 mg for 4 days (days 2-5) PO Eliquis 5 mg Tablet 5 mg PO BID 30 Days Qty: 60 3RF Primary Care Provider: Care Physician,Joy Primary Referrals: Care Physician,No Primary [Primary Care Provider] - Pito Cuevas [employer], [employer] INSPECTOR-C [Med Staff - Adv Practice Prof] - 3-5 Days Activity Restrictions/Additional Instructions: A-fib rate controlled in the ED. Continue your Cardizem for which you want to use 180 mg at this time. Continue your Eliquis. Take Lasix 40 mg daily. Creatinine 1.57 GFR 49 stable from previous labs. Your last echo April 22, 2024 EF of 35%. Discussed with your cardiology team treatment options for your cardiomyopathy. Discussed plans with dry weight and diuretics to continue as needed. Your weight today is 102.5 kg. Print Language: Polish Disposition Disposition: Home, Self Care
[2024-06-09] MEDS: Furosemide 40 MG/4 ML Vial IV (21:46)
[2024-06-09 21:55] LABS: Reflex Troponin-HS? (from REC) Y
[2024-06-09 22:18] LABS: Troponin-I HS 25 pg/mL (3.0-78.0)
[2024-06-09] MEDS: dilTIAZem CD 180 MG Capsule PO (23:39)
[2024-06-10] VITALS: BP 131/113; PULSE 113; RESP 15; O2SAT 95
[2024-06-10 00:17] VITALS: BP 129/87; PULSE 107; RESP 18; O2SAT 98
[2024-06-10 00:30] VITALS: BP 118/79; PULSE 102; RESP 18; TEMP 36.7; O2SAT 97
== END 2024-06-10 00:32 | disposition home or self-care (01) ==
PROVIDERS: Emergency Provider Emergency Medicine; Visit Provider Emergency Medicine
DX: I48.0 Paroxysmal atrial fibrillation (principal); I42.0 Dilated cardiomyopathy; N18.30 Chronic kidney disease, stage 3 unspecified; R06.01 Orthopnea; Z79.01 Long term (current) use of anticoagulants; R60.0 Localized edema
CPT/HCPCS: 71045; 80048; 83880; 84484; 85025; 93005; 96374; 99283; A4216; J1940